=== PATIENT | female | born 1965 | race American Indian/Alaskan Native ===

== ENCOUNTER 2016-06-15 05:26 | Emergency (ER) | payer SELFPAY ==
[2016-06-15] MEDS ORDERED: MAGNESIUM SULFATE 2GM/50ML 50 ML IV ONE (06:45)
[2016-06-15] MEDS ORDERED: PROVENTIL IH ONE ×2 (06:45→08:59)
[2016-06-15] MEDS ORDERED: ATROVENT IH ONE (06:45)
--- NOTE | 2016-06-15 06:47 | Emergency Department Report ---
HPI - General Chief Complaint: Dyspnea/Respdistress Time Seen by Provider: 06/15/16 06:04 - HPI HPI: This is a 51-year-old Afro-[place] female presents to the emergency department from home with complaint of a three-day history of shortness of breath. This associated with a mild dry cough and significant wheezing. Patient has a history of asthma and says that this feels like an asthma exacerbation. She has tried her albuterol inhaler and her nebulized treatments at home without any relief. She does not have a primary care doctor. She is not a tobacco user. She denies any recent travel or sick contacts at home. She says she has had to be admitted to a hospital in the past for asthma but has never required intubation. ED Past Medical Hx - Past Medical History Previous Medical History?: Yes Hx Congestive Heart Failure: No Hx Diabetes: No Hx Pulmonary Embolism: No Hx Asthma: Yes (has been intubated) Hx COPD: No Hx Tuberculosis: No Hx HIV: No - Surgical History Past Surgical History?: Yes Additional Surgical History: tubal ligation - Social History Smoking Status: Never Smoker Substance Use Type: None - Medications Home Medications: Home Medications Medication Instructions Recorded Confirmed Last Taken Type ALBUTEROL Inhaler [ProAir HFA 2 puff IH QID PRN #1 inhalation 05/21/16 06/15/16 1 Day Ago Rx Inhaler] 8.5 Albuterol Sulfate [Albuterol 0.63% 0.63 mg IH TID PRN #1 box 06/15/16 Unknown Rx NEBS] Fluticasone [Flonase] 2 dispenser BID 06/15/16 06/15/16 1 Day Ago History Fluticasone/Salmeterol [Advair 2 device PO DAILY 06/15/16 06/15/16 1 Day Ago History Diskus 250-50 mcg] Montelukast [Singulair] 10 mg PO QPM 06/15/16 06/15/16 1 Day Ago History 10 predniSONE [Deltasone] 20 mg PO BID #10 tab 06/15/16 Unknown Rx ED Review of Systems ROS: Stated complaint: SOPHY Other details as noted in HPI Comment: All other systems reviewed and negative Constitutional: denies: chills, fever Eyes: denies: eye pain, eye discharge, vision change ENT: denies: ear pain, throat pain Respiratory: cough, shortness of breath, wheezing Cardiovascular: denies: chest pain, palpitations Gastrointestinal: denies: abdominal pain, nausea, diarrhea Genitourinary: denies: urgency, dysuria, discharge Musculoskeletal: denies: back pain, joint swelling, arthralgia Skin: denies: rash, lesions Neurological: denies: headache, weakness, paresthesias Physical Exam - Physical Exam Vital Signs: Vital Signs 06/15/16 06/15/16 06/15/16 05:31 05:45 06:12 Temperature 98 F 98 F Pulse Rate 119 H 119 H 107 H Respiratory 24 21 Rate Blood Pressure 144/93 Blood Pressure 144/93 102/76 [Right] O2 Sat by Pulse 99 99 96 Oximetry 06/15/16 06:14 Temperature Pulse Rate Respiratory 21 Rate Blood Pressure Blood Pressure [Right] O2 Sat by Pulse 96 Oximetry Physical Exam: GENERAL: The patient is well-developed well-nourished. HEENT: Normocephalic. Atraumatic. Extraocular motions are intact. Patient has moist mucous membranes. Pupils equal reactive to light bilaterally. NECK: Supple. Trachea is midline. CHEST/LUNGS: Moderate wheezing throughout the chest. Patient has tachypnea and some supraclavicular accessory muscle use. Patient has conversational dyspnea. There is mild to moderate respiratory distress noted. HEART/CARDIOVASCULAR: Regular. There is mild tachycardia. There is no gallop rub or murmur. ABDOMEN: Abdomen is soft, nontender. Patient has normal bowel sounds. There is no abdominal distention. SKIN: There is no rash. There is no edema. There is no diaphoresis. NEURO: The patient is awake, alert, and oriented. The patient is cooperative. The patient has no focal neurologic deficits. The patient has normal speech. MUSCULOSKELETAL: There is no tenderness or deformity. There is no limitation range of motion. There is no evidence of acute injury. ED Course Vital Signs 06/15/16 06/15/16 06/15/16 05:31 05:45 06:12 Temperature 98 F 98 F Pulse Rate 119 H 119 H 107 H Respiratory 24 21 Rate Blood Pressure 144/93 Blood Pressure 144/93 102/76 [Right] O2 Sat by Pulse 99 99 96 Oximetry 06/15/16 06:14 Temperature Pulse Rate Respiratory 21 Rate Blood Pressure Blood Pressure [Right] O2 Sat by Pulse 96 Oximetry ED Medical Decision Making - Lab Data Result diagrams: 06/15/16 07:53 06/15/16 07:53 - EKG Data -: EKG Interpreted by Me EKG shows normal: sinus rhythm, axis (LAD), intervals, QRS complexes, ST-T waves Rate: tachycardia (106 bpm) - EKG Data When compared to previous EKG there are: previous EKG unavailable Interpretation: other (sinus tach, left axis deviation) - Radiology Data Radiology results: image reviewed interpreted by me: Chest x-ray did not show any acute process. Heart is normal shape and size. No effusions. No pneumothorax. No signs of pneumonia seen. - Medical Decision Making 51-year-old female presents with what appears to be a asthma exacerbation. She has shortness of breath, wheezing and says she has a cough. She appears to be in mild to moderate distress at first with some conversational dyspnea, tachypnea and accessory muscle use. However the patient was given a long breathing treatment with albuterol and Atrovent, IV Solu-Medrol and magnesium, and upon reevaluation she is feeling much better and no longer in any respiratory distress. Patient's heart rate is coming down to a normal level. Vital signs are stable including being afebrile and there has been no hypoxia. Patient's labs are unremarkable. Chest x-ray does not show any signs of heart failure or pneumonia. Patient's that she is feeling much better and asking for discharge home. She will get a 5 day course of steroids and a refill of her nebulized treatments. She already is attempting to establish care with outside [facility]. She will return to the ER with any worsening of her symptoms or any acute distress. - Differential Diagnosis asthma, bronchitis, pneumonia, OR, COPD Critical Care Time: No Critical care attestation.: If time is entered above; I have spent that time in minutes in the direct care of this critically ill patient, excluding procedure time. ED Disposition Clinical Impression: Asthma exacerbation Disposition: DISCHARGED TO HOME OR SELFCARE Is pt being admited?: No Does the pt Need Aspirin: No Condition: Stable Instructions: Asthma (ED) Additional Instructions: Please follow-up with a primary care doctor in the next few days. It is recommended that he use the nebulized breathing treatments a bout every 4-5 hours for the next day. Take the steroids as prescribed. Return to the emergency department with any worsening of your symptoms or any acute distress. Prescriptions: Albuterol Sulfate [Albuterol 0.63% NEBS] 0.63 mg IH TID PRN #1 box PRN Reason: Wheezing predniSONE [Deltasone] 20 mg PO BID #10 tab Referrals: [facility] [Outside] - 3-5 Days Time of Disposition: 09:52
[2016-06-15 08:35] LABS: Hematocrit 39.5 % (30.3-42.9); Hemoglobin 12.3 gm/dl (10.1-14.3); Mean Corpuscular HGB Conc 31 % (30-34); Mean Corpuscular Hemoglobin 27 pg (28-32); Mean Corpuscular Volume 88 fl (79-97); Platelet Count 256 K/mm3 (140-440); Red Blood Count 4.49 M/mm3 (3.65-5.03); White Blood Count 6.8 K/mm3 (4.5-11.0)
[2016-06-15 08:56] LABS: Anion Gap 17 mmol/L; Blood Urea Nitrogen 12 mg/dL (7-17); Calcium 8.6 mg/dL (8.4-10.2); Carbon Dioxide 27 mmol/L (22-30); Chloride 99.7 mmol/L (98-107); Glucose 113 mg/dL (65-100); Potassium 3.7 mmol/L (3.6-5.0); Sodium 140 mmol/L (137-145)
[2016-06-15 09:30] LABS: Anisocytosis 1+; Basophils % (Manual) 0 % (0.0-1.8); Blastocytes % (Manual) 0 %; Diff Status Complete; Hypochromasia 1+
[2016-06-15 10:26] VITALS: BP 115/75
--- NOTE | 2016-06-16 11:16 | XRay Report ---
AP CHEST: HISTORY: Shortness of breath AP view of the chest demonstrates a normal mediastinal and cardiac contour with clear lungs and normal bony and soft tissue structures. IMPRESSION: Unremarkable AP chest. No significant change since 05/19/16.
== END 2016-06-15 10:25 | disposition home or self-care (01) ==
LOC: ED 05:26
DX: J45.901 Unspecified asthma with (acute) exacerbation (principal)
CPT/HCPCS: 36415; 71010; 80048; 84484; 85007; 85025; 93005; 93010; 94640; 96365; 96375; 99284; J2930; J3475

== ENCOUNTER 2016-07-15 01:15 | Emergency (ER) | payer OTHER ==
[2016-07-15] MEDS ORDERED: DUONEB 0.5 MG-3 MG/3 ML SOLN IH ONE ×3 (01:55→03:58)
[2016-07-15] MEDS ORDERED: PROVENTIL IH ONE ×2 (03:58→06:09)
[2016-07-15] MEDS ORDERED: DELTASONE PO ONE (03:58)
[2016-07-15] MEDS ORDERED: TYLENOL ONE (05:12)
[2016-07-15] MEDS ORDERED: TYLENOL PO ONE (05:19)
[2016-07-15 05:21] VITALS: BP 122/65
--- NOTE | 2016-07-15 06:16 | Emergency Department Report ---
ED Asthma HPI - General Chief Complaint: Adult Asthma Stated Complaint: ASTHMA Time Seen by Provider: 07/15/16 03:53 Source: patient Mode of arrival: Ambulatory Limitations: No Limitations - History of Present Illness Initial Comments: This is a pleasant 51-year-old female who indicates that she is required increased albuterol usage today. She does endorse using Advair as maintenance medicatio she states that she has numerous triggers including the weather and upper respiratory infections as a chief triggers for her asthma exacerbation. She has never required intubation for asthma. She does report being on steroids approximately 6 weeks ago for asthma exacerbation. MD Complaint: "asthma attack" Onset/Timin -: Gradual, hour(s) Asthma History: adult onset Context: recent URI, other (cold) Associated Symptoms: dry cough. denies: fever, chest pain Treatments Prior to Arrival: inhaled bronchodilator - Related Data Home Medications Medication Instructions Recorded Confirmed Last Taken Fluticasone [Flonase] 2 dispenser BID 06/15/16 06/15/16 1 Day Ago Fluticasone/Salmeterol [Advair 2 device PO DAILY 06/15/16 06/15/16 1 Day Ago Diskus 250-50 mcg] Montelukast [Singulair] 10 mg PO QPM 06/15/16 06/15/16 1 Day Ago 10 Previous Rx's Medication Instructions Recorded Last Taken Type ALBUTEROL Inhaler [ProAir HFA 2 puff IH QID PRN #1 inhalation 05/21/16 1 Day Ago Rx Inhaler] 8.5 Albuterol Sulfate [Albuterol 0.63% 0.63 mg IH TID PRN #1 box 06/15/16 Unknown Rx NEBS] predniSONE [Deltasone] 20 mg PO BID #10 tab 06/15/16 Unknown Rx ALBUTEROL Inhaler [ProAir HFA 2 puff IH QID PRN #1 inhalation 07/15/16 Unknown Rx Inhaler] ALBUTEROL NEB's [Proventil 0.083% 2.5 mg IH QID PRN #90 dose 07/15/16 Unknown Rx NEBS] predniSONE [Deltasone] 60 mg PO DAILY #4 tablet 07/15/16 Unknown Rx Allergies Allergy/AdvReac Type Severity Reaction Status Date / Time erythromycin base Allergy Vomiting Verified 04/28/16 13:37 Penicillins Allergy Vomiting Verified 04/28/16 13:37 ED Review of Systems ROS: Stated complaint: ASTHMA Other details as noted in HPI Constitutional: denies: chills, fever Eyes: denies: eye pain, eye discharge, vision change ENT: denies: ear pain, throat pain Respiratory: shortness of breath, SOB with exertion, wheezing. denies: cough Cardiovascular: denies: chest pain, palpitations Endocrine: no symptoms reported Gastrointestinal: denies: abdominal pain, nausea, diarrhea Genitourinary: denies: urgency, dysuria, discharge Musculoskeletal: denies: back pain, joint swelling, arthralgia Skin: denies: rash, lesions Neurological: headache. denies: weakness, paresthesias Psychiatric: denies: anxiety, depression Hematological/Lymphatic: denies: easy bleeding, easy bruising ED Past Medical Hx - Past Medical History Previous Medical History?: Yes Hx Congestive Heart Failure: No Hx Diabetes: No Hx Pulmonary Embolism: No Hx Asthma: Yes (has been intubated) Hx COPD: No Hx Tuberculosis: No Hx HIV: No - Surgical History Past Surgical History?: Yes Additional Surgical History: tubal ligation - Social History Smoking Status: Never Smoker Substance Use Type: None - Medications Home Medications: Home Medications Medication Instructions Recorded Confirmed Last Taken Type ALBUTEROL Inhaler [ProAir HFA 2 puff IH QID PRN #1 inhalation 05/21/16 06/15/16 1 Day Ago Rx Inhaler] 8.5 Albuterol Sulfate [Albuterol 0.63% 0.63 mg IH TID PRN #1 box 06/15/16 Unknown Rx NEBS] Fluticasone [Flonase] 2 dispenser BID 06/15/16 06/15/16 1 Day Ago History Fluticasone/Salmeterol [Advair 2 device PO DAILY 06/15/16 06/15/16 1 Day Ago History Diskus 250-50 mcg] Montelukast [Singulair] 10 mg PO QPM 06/15/16 06/15/16 1 Day Ago History 10 predniSONE [Deltasone] 20 mg PO BID #10 tab 06/15/16 Unknown Rx ALBUTEROL Inhaler [ProAir HFA 2 puff IH QID PRN #1 inhalation 07/15/16 Unknown Rx Inhaler] ALBUTEROL NEB's [Proventil 0.083% 2.5 mg IH QID PRN #90 dose 07/15/16 Unknown Rx NEBS] predniSONE [Deltasone] 60 mg PO DAILY #4 tablet 07/15/16 Unknown Rx ED Physical Exam - General Limitations: No Limitations General appearance: alert, in distress (mild distress due to dyspnea) - Head Head exam: Present: atraumatic, normocephalic - Eye Eye exam: Present: normal appearance - ENT ENT exam: Present: normal orophraynx, mucous membranes moist - Neck Neck exam: Present: normal inspection - Respiratory Respiratory exam: Present: respiratory distress (mild), wheezes (diffusely), decreased breath sounds - Cardiovascular Cardiovascular Exam: Present: regular rate, normal rhythm. Absent: systolic murmur, diastolic murmur, rubs, gallop - GI/Abdominal GI/Abdominal exam: Present: soft, normal bowel sounds - Extremities Exam Extremities exam: Present: normal inspection - Back Exam Back exam: Present: normal inspection - Neurological Exam Neurological exam: Present: alert, oriented X3 - Psychiatric Psychiatric exam: Present: normal affect, normal mood - Skin Skin exam: Present: warm, dry, intact, normal color. Absent: rash ED Course Vital Signs 07/15/16 07/15/16 07/15/16 01:20 02:31 02:44 Temperature 97.9 F Pulse Rate 100 H 88 Pulse Rate [ Anterior Bilateral Throughout] Respiratory 22 22 12 Rate Respiratory Rate [Anterior Bilateral Throughout] Blood Pressure 128/97 Blood Pressure [Left] O2 Sat by Pulse 97 99 Oximetry 07/15/16 07/15/16 07/15/16 04:33 05:02 05:20 Temperature Pulse Rate 100 H Pulse Rate [ 88 89 Anterior Bilateral Throughout] Respiratory 16 Rate Respiratory 18 18 Rate [Anterior Bilateral Throughout] Blood Pressure Blood Pressure 122/65 [Left] O2 Sat by Pulse 99 Oximetry - Reevaluation(s) Reevaluation #1: 07/15/16 06:17 Patient was given several rounds of albuterol here as well as an oral dose of prednisone. I will send home with a 5 day burst total of prednisone as well. She still sounds fairly tight on the evaluation. Her oxygen saturation is appropriate. She is able to speak in full sentences at this time as well. She subjectively reports feeling much improved. She does have a nebulizer at home as well as medications at home. I feel she will be safe for home. She seems to understand her disease very well. Critical care attestation.: If time is entered above; I have spent that time in minutes in the direct care of this critically ill patient, excluding procedure time. ED Disposition Clinical Impression: Asthma exacerbation Disposition: DISCHARGED TO HOME OR SELFCARE Is pt being admited?: No Does the pt Need Aspirin: No Condition: Stable Prescriptions: ALBUTEROL Inhaler [ProAir HFA Inhaler] 2 puff IH QID PRN #1 inhalation PRN Reason: Shortness Of Breath ALBUTEROL NEB's [Proventil 0.083% NEBS] 2.5 mg IH QID PRN #90 dose PRN Reason: Wheezing predniSONE [Deltasone] 60 mg PO DAILY #4 tablet Referrals: PRIMARY CARE, [Primary Care Provider] - 3-5 Days Time of Disposition: 06:19
== END 2016-07-15 07:07 | disposition home or self-care (01) ==
LOC: ED 01:15
DX: J45.901 Unspecified asthma with (acute) exacerbation (principal); Z88.0 Allergy status to penicillin; Z88.1 Allergy status to other antibiotic agents; Z79.899 Other long term (current) drug therapy
CPT/HCPCS: 94640; 99283; J7512

== ENCOUNTER 2016-08-18 10:28 | Emergency (ER) | payer SELFPAY ==
[2016-08-18 10:45] VITALS: BP 126/77
[2016-08-18] MEDS ORDERED: DUONEB 0.5 MG-3 MG/3 ML SOLN IH ONE (10:58)
--- NOTE | 2016-08-18 11:10 | Emergency Department Report ---
ED Asthma HPI - General Chief Complaint: Adult Asthma Stated Complaint: SOPHY Time Seen by Provider: 08/18/16 10:57 Source: patient, old records reviewed Mode of arrival: Ambulatory Limitations: No Limitations - History of Present Illness Initial Comments: PT coughing and wheezing. PT nods when asked if symptoms started this am and if she usually feels this way when she has an asthma attack MD Complaint: "asthma attack" Asthma History: history of prior ED visit Associated Symptoms: dry cough - Related Data Current Asthma Therapy: recent oral steroid (last month ) Home Medications Medication Instructions Recorded Confirmed Last Taken Fluticasone [Flonase] 2 dispenser BID 06/15/16 06/15/16 1 Day Ago Fluticasone/Salmeterol [Advair 2 device PO DAILY 06/15/16 06/15/16 1 Day Ago Diskus 250-50 mcg] Montelukast [Singulair] 10 mg PO QPM 06/15/16 06/15/16 1 Day Ago 10 Previous Rx's Medication Instructions Recorded Last Taken Type ALBUTEROL NEB's [Proventil 0.083% 2.5 mg IH QID PRN #90 dose 07/15/16 Unknown Rx NEBS] Albuterol Sulfate [Ventolin HFA] 2 puff IH Q4H PRN #1 hfa.aer.ad 08/18/16 Unknown Rx Benzonatate [Tessalon Perles] 100 mg PO Q8HR PRN #12 capsule 08/18/16 Unknown Rx predniSONE [Deltasone] 20 mg PO QDAY 6 Days 08/18/16 Unknown Rx Allergies Allergy/AdvReac Type Severity Reaction Status Date / Time erythromycin base Allergy Vomiting Verified 04/28/16 13:37 Penicillins Allergy Vomiting Verified 04/28/16 13:37 ED Review of Systems ROS: Stated complaint: SOPHY Other details as noted in HPI Comment: Unobtainable due to pts medical conditions (pt unable to speak in full sentences at this time.) ED Past Medical Hx - Past Medical History Hx Congestive Heart Failure: No Hx Diabetes: No Hx Pulmonary Embolism: No Hx Asthma: Yes (has been intubated) Hx COPD: No Hx Tuberculosis: No Hx HIV: No - Surgical History Additional Surgical History: tubal ligation - Social History Smoking Status: Never Smoker Substance Use Type: None - Medications Home Medications: Home Medications Medication Instructions Recorded Confirmed Last Taken Type Fluticasone [Flonase] 2 dispenser BID 06/15/16 06/15/16 1 Day Ago History Fluticasone/Salmeterol [Advair 2 device PO DAILY 06/15/16 06/15/16 1 Day Ago History Diskus 250-50 mcg] Montelukast [Singulair] 10 mg PO QPM 06/15/16 06/15/16 1 Day Ago History 10 ALBUTEROL NEB's [Proventil 0.083% 2.5 mg IH QID PRN #90 dose 07/15/16 Unknown Rx NEBS] Albuterol Sulfate [Ventolin HFA] 2 puff IH Q4H PRN #1 hfa.aer.ad 08/18/16 Unknown Rx Benzonatate [Tessalon Perles] 100 mg PO Q8HR PRN #12 capsule 08/18/16 Unknown Rx predniSONE [Deltasone] 20 mg PO QDAY 6 Days 08/18/16 Unknown Rx ED Physical Exam - General Limitations: No Limitations General appearance: alert, other (resp distress noted ) - Head Head exam: Present: atraumatic, normocephalic - Eye Eye exam: Present: normal appearance - ENT ENT exam: Present: normal exam - Neck Neck exam: Present: normal inspection, full ROM - Respiratory Respiratory exam: Present: respiratory distress, wheezes (keven, ins and exp ), accessory muscle use - Cardiovascular Cardiovascular Exam: Present: normal rhythm, tachycardia - GI/Abdominal GI/Abdominal exam: Present: soft. Absent: tenderness - Extremities Exam Extremities exam: Present: normal inspection, full ROM - Back Exam Back exam: Present: normal inspection, full ROM. Absent: tenderness, CVA tenderness (R), CVA tenderness (L) - Neurological Exam Neurological exam: Present: alert, oriented X3, CN II-XII intact, normal gait - Psychiatric Psychiatric exam: Present: normal affect, normal mood - Skin Skin exam: Present: warm, dry ED Course Vital Signs 08/18/16 08/18/16 08/18/16 10:39 11:18 12:20 Temperature 98.7 F Pulse Rate 117 H Pulse Rate [ 107 H 91 H Anterior Bilateral Throughout] Respiratory 26 H 20 Rate [Anterior Bilateral Throughout] Blood Pressure 126/77 O2 Sat by Pulse 96 Oximetry 08/18/16 08/18/16 08/18/16 13:26 15:38 16:05 Temperature Pulse Rate Pulse Rate [ 92 H 96 H 105 H Anterior Bilateral Throughout] Respiratory 20 20 20 Rate [Anterior Bilateral Throughout] Blood Pressure O2 Sat by Pulse Oximetry - Reevaluation(s) Reevaluation #1: 08/18/16 12:02 Continuous neb in progress. PT states she is feeling better. PT still wheezing Reevaluation #2: 08/18/16 14:14 PT completed second neb. PT states she is feeling better but she is still wheezing. PT with keven wheezing on exam. PT able to speak in complete sentences. PT states she has had a cold for 1 week and she noticed an increase in coughing on Friday. PT states she has been using her home breathing treatments but this am around 0600, they stopped helping Reevaluation #3: 08/18/16 16:31 PT states she is feeling better. PT stats she has appointment with [facility] in a month. PT given strict return precautions. PT with slight wheeze keven. - Pulse Oximetry Interpretation Digit-Finger Initial Pulse Oximetry Readin Actions Taken: none ED Medical Decision Making - Radiology Data Radiology results: image reviewed interpreted by me: CXR - nap - Differential Diagnosis asthma, bronchitis, uri, pna Critical care attestation.: If time is entered above; I have spent that time in minutes in the direct care of this critically ill patient, excluding procedure time. ED Disposition Clinical Impression: Asthmatic bronchitis with exacerbation Qualifiers: Asthma severity: unspecified severity Qualified Code(s): J45.901 - Unspecified asthma with (acute) exacerbation Disposition: DISCHARGED TO HOME OR SELFCARE Is pt being admited?: No Does the pt Need Aspirin: No Condition: Stable Instructions: Chronic Bronchitis (ED) Prescriptions: Albuterol Sulfate [Ventolin HFA] 2 puff IH Q4H PRN #1 hfa.aer.ad PRN Reason: Shortness Of Breath Benzonatate [Tessalon Perles] 100 mg PO Q8HR PRN #12 capsule PRN Reason: Cough predniSONE [Deltasone] 20 mg PO QDAY 6 Days Referrals: PRIMARY CARE, [Primary Care Provider] - 3-5 Days Time of Disposition: 16:33
[2016-08-18] MEDS ORDERED: PROVENTIL IH ONE ×3 (11:20→14:15)
[2016-08-18] MEDS ORDERED: ATROVENT IH ONE ×3 (11:22→14:15)
[2016-08-18] MEDS ORDERED: TYLENOL PO ONE (14:46)
[2016-08-18] MEDS ORDERED: TESSALON PERLES PO ONE (14:52)
--- NOTE | 2016-08-19 07:49 | XRay Report ---
ROUTINE CHEST, TWO VIEWS: HISTORY: Cough. The trachea, heart, mediastinal contour, lung mendoza and bony thorax are unremarkable. IMPRESSION: No acute cardiopulmonary process.
== END 2016-08-18 16:38 | disposition home or self-care (01) ==
LOC: ED 10:28
DX: J45.901 Unspecified asthma with (acute) exacerbation (principal); Z88.0 Allergy status to penicillin; Z88.1 Allergy status to other antibiotic agents; Z79.899 Other long term (current) drug therapy; Z98.51 Tubal ligation status
CPT/HCPCS: 71020; 94644; 96372; 99284; J2930

== ENCOUNTER 2016-09-12 19:03 | Emergency (ER) | payer SELFPAY ==
[2016-09-12] MEDS ORDERED: DUONEB 0.5 MG-3 MG/3 ML SOLN IH ONE ×2 (19:08→19:17)
[2016-09-12] MEDS ORDERED: TYLENOL/CODEINE PO ONE (20:36)
[2016-09-12 20:39] LABS: Hemoglobin 13.4 gm/dl (10.1-14.3); Mean Corpuscular HGB Conc 33 % (30-34); Mean Corpuscular Hemoglobin 29 pg (28-32); Mean Corpuscular Volume 88 fl (79-97); Platelet Count 287 K/mm3 (140-440); Red Blood Count 4.64 M/mm3 (3.65-5.03); Red Cell Distribution Width 18.2 % (13.2-15.2); White Blood Count 6.6 K/mm3 (4.5-11.0)
[2016-09-12 20:46] LABS: Anion Gap 17 mmol/L; BUN/Creatinine Ratio 18.33; Blood Urea Nitrogen 11 mg/dL (7-17); Calcium 9.2 mg/dL (8.4-10.2); Carbon Dioxide 26 mmol/L (22-30); Chloride 101.1 mmol/L (98-107); Glucose 90 mg/dL (65-100); Potassium 3.9 mmol/L (3.6-5.0); Sodium 140 mmol/L (137-145)
--- NOTE | 2016-09-12 20:46 | Emergency Department Report ---
HPI - General Chief Complaint: Adult Asthma Time Seen by Provider: 09/12/16 20:22 - HPI HPI: This is a 51-year-old female with a history of asthma on Advair discus who presents to ED complaining of hoarseness and difficulty breathing and cough 2 days. Patient states she is a cough for the past 3-4 days. And today she started having wheezing with difficulty breathing. Patient states her home medication was not working and she is out of her albuterol.. Patient denies fever/chills/nausea/vomiting/abdominal pain/chest pain/dizziness/ headache ED Past Medical Hx - Past Medical History Previous Medical History?: Yes Hx Congestive Heart Failure: No Hx Diabetes: No Hx Pulmonary Embolism: No Hx Asthma: Yes (has been intubated) Hx COPD: No Hx Tuberculosis: No Hx HIV: No - Surgical History Past Surgical History?: Yes Additional Surgical History: tubal ligation - Social History Smoking Status: Never Smoker Substance Use Type: None - Medications Home Medications: Home Medications Medication Instructions Recorded Confirmed Last Taken Type Fluticasone [Flonase] 2 dispenser BID 06/15/16 09/12/16 09/12/16 History Fluticasone/Salmeterol [Advair 2 device PO DAILY 06/15/16 09/12/16 09/12/16 History Diskus 250-50 mcg] Montelukast [Singulair] 10 mg PO QPM 06/15/16 09/12/16 09/12/16 History ALBUTEROL NEB's [Proventil 0.083% 2.5 mg IH QID PRN #90 dose 07/15/16 09/12/16 09/12/16 Rx NEBS] Albuterol Sulfate [Ventolin HFA] 2 puff IH Q4H PRN #1 hfa.aer.ad 09/12/16 Unknown Rx Azithromycin [Zithromax] 250 mg PO DAILY #6 tablet 09/12/16 Unknown Rx Benzonatate [Tessalon Perles] 100 mg PO Q8HR PRN #12 capsule 09/12/16 Unknown Rx predniSONE [Deltasone] 20 mg PO QDAY 6 Days 09/12/16 Unknown Rx ED Review of Systems ROS: Stated complaint: ASTHMA Other details as noted in HPI Constitutional: denies: chills, fever Eyes: denies: eye pain, eye discharge, vision change ENT: denies: ear pain, throat pain, dental pain, hearing loss, congestion Respiratory: cough, wheezing. denies: shortness of breath Cardiovascular: denies: chest pain, palpitations Endocrine: no symptoms reported Gastrointestinal: denies: abdominal pain, nausea, vomiting, diarrhea Genitourinary: denies: urgency, dysuria, frequency, hematuria, discharge, abnormal menses, dyspareunia Musculoskeletal: denies: back pain, joint swelling, arthralgia, myalgia Skin: denies: rash, lesions Neurological: denies: headache, weakness, paresthesias Psychiatric: denies: anxiety, depression Hematological/Lymphatic: denies: easy bleeding, easy bruising Physical Exam - Physical Exam Vital Signs: Vital Signs 09/12/16 09/12/16 19:05 19:40 Temperature 98.1 F Pulse Rate 110 H Pulse Rate [ 74 Bilateral Throughout] Respiratory 22 Rate Respiratory 18 Rate [Bilateral Throughout] Blood Pressure 132/91 [Right] O2 Sat by Pulse 96 Oximetry Physical Exam: GENERAL: Alert and oriented x3, no apparent distress, Normal Gait, atraumatic. HEAD: Head is normocephalic and a-traumatic. EYES: Extra ocular muscles are intact. Pupils are equal, round, and reactive to light and accommodation. MOUTH:Mouth is well hydrated and without lesions. Tonsils nonerythematous or swollen, Uvula midline, Tongue not elevated. Mucous membranes are moist. Posterior pharynx clear, no exudate or lesions. Patent airways. NECK: Supple. Non edematous, No carotid bruits. No lymphadenopathy or thyromegaly. LUNGS: Symetrical with respiration, no use of accessory muscles, bilateral expiratory wheezing heard, no rales or crackles, CTAB. HEART: S1, S2 present, regular rate and rhythm without murmur, no rubs, no gallops. ABDOMEN: No organomegaly was noted,Positive bowel sounds, soft, and non- distended. . Nontender to palpation on all Quadrants, NO CVA tndness PSYCHIATRIC: Mood is congruent with affect, denies suicidal or homicidal ideations. SKIN: Warm and dry, No lesions, No ulceration or induration present. ED Course Vital Signs 09/12/16 09/12/16 19:05 19:40 Temperature 98.1 F Pulse Rate 110 H Pulse Rate [ 74 Bilateral Throughout] Respiratory 22 Rate Respiratory 18 Rate [Bilateral Throughout] Blood Pressure 132/91 [Right] O2 Sat by Pulse 96 Oximetry ED Medical Decision Making - Lab Data Result diagrams: 09/12/16 20:08 09/12/16 20:08 - Radiology Data Radiology results: report reviewed, image reviewed FINAL REPORT PROCEDURE: XR CHEST ROUTINE 2V TECHNIQUE: PA and lateral chest radiographs were obtained. CPT 03096 HISTORY: Shortness of breath COMPARISON: No prior studies are available for comparison. FINDINGS: Heart: Normal. Mediastinum/Vessels: Normal. Lungs/Pleural space: Normal. Bony thorax: No acute osseous abnormality. Other: IMPRESSION: Negative examination. Transcribed By: DFAlex Dictated By: RACHEL MONTANO MD Electronically Authenticated By: RCAHEL MONTANO MD Signed Date/Time: 09/12/162158 - Medical Decision Making 51-year-old female presents with asthma exacerbation. ED course. Patient received respiratory treatment of DuoNeb in triage. Patient received Solu-Medrol IM and Tylenol with codeine ED. Patient was recently evaluated. Mild bilateral expiratory wheezing. O2 saturation increased Patient received another breathing treatment of albuterol ED. History of breath 30 minutes patient states she feels much better. Patient states she needs referral for primary care follow-up. Discussed referrals will be given. To follow-up in 3-5 days. Discussed home antibiotic, prednisone, and refill of her albuterol. She verbally states she understands and will follow-up. Patient is in no acute respiratory distress no use process or muscle patient is breathing properly and ready to go home Critical care attestation.: If time is entered above; I have spent that time in minutes in the direct care of this critically ill patient, excluding procedure time. ED Disposition Clinical Impression: Asthma exacerbation Disposition: DISCHARGED TO HOME OR SELFCARE Is pt being admited?: No Does the pt Need Aspirin: No Condition: Stable Instructions: Asthma (ED) Prescriptions: Albuterol Sulfate [Ventolin HFA] 2 puff IH Q4H PRN #1 hfa.aer.ad PRN Reason: Shortness Of Breath Azithromycin [Zithromax] 250 mg PO DAILY #6 tablet Benzonatate [Tessalon Perles] 100 mg PO Q8HR PRN #12 capsule PRN Reason: Cough predniSONE [Deltasone] 20 mg PO QDAY 6 Days Referrals: PRIMARY CARE,MD [Primary Care Provider] - 3-5 Days KERRI CHRISTENSEN MD [Referring] - 3-5 Days BRADLY BELL MD [Referring] - 3-5 Days [facility] [Outside] - 3-[address] [facility] [Outside] - 3-5 Days [facility] [Outside] - 3-5 Days Forms: Work/School Release Form(ED) Time of Disposition: 22:20
[2016-09-12] MEDS ORDERED: PROVENTIL IH ONE (21:03)
--- NOTE | 2016-09-12 22:02 | XRay Report ---
FINAL REPORT PROCEDURE: XR CHEST ROUTINE 2V TECHNIQUE: PA and lateral chest radiographs were obtained. CPT 73288 HISTORY: Shortness of breath COMPARISON: No prior studies are available for comparison. FINDINGS: Heart: Normal. Mediastinum/Vessels: Normal. Lungs/Pleural space: Normal. Bony thorax: No acute osseous abnormality. Other: IMPRESSION: Negative examination.
[2016-09-12 22:07] LABS: Basophils % (Manual) 0 % (0.0-1.8); Blastocytes % (Manual) 0 %
[2016-09-12 22:08] LABS: Anisocytosis 1+; Diff Status Complete; Elliptocytes Few; Platelet Estimate Consistent w Auto
[2016-09-12 23:07] VITALS: BP 133/89
== END 2016-09-12 23:07 | disposition home or self-care (01) ==
LOC: ED 19:03
DX: J45.901 Unspecified asthma with (acute) exacerbation (principal); Z98.51 Tubal ligation status
CPT/HCPCS: 36415; 71020; 80048; 84484; 84703; 85007; 85025; 94640; 96372; 99284; J2930

== ENCOUNTER 2016-10-06 03:31 | Emergency (ER) | payer OTHER ==
[2016-10-06] MEDS ORDERED: XOPENEX IH ONE ×3 (03:39→05:40)
[2016-10-06 03:44] VITALS: BP 131/96
[2016-10-06] MEDS ORDERED: ATROVENT IH ONE (04:33)
[2016-10-06] MEDS ORDERED: NORCO 5/325 PO ONE (04:38)
--- NOTE | 2016-10-06 05:29 | XRay Report ---
FINAL REPORT EXAM: XR CHEST ROUTINE 2V HISTORY: asthma exacerbation TECHNIQUE: Chest, PA and lateral PRIORS: 09/12/2016 FINDINGS: The heart size is normal. Mediastinal contours are normal. Pulmonary vasculature is not congested. The lungs are clear. There are no pleural effusion seen. There is no evidence of pneumothorax. IMPRESSION: There is no acute abnormality identified.
--- NOTE | 2016-10-06 06:22 | Emergency Department Report ---
HPI - General Chief Complaint: Adult Asthma Time Seen by Provider: 10/06/16 04:23 - HPI HPI: 51-year-old female presents today complaining of wheezing since 1430 hrs. yesterday. Positive for history of asthma and states that it usually takes her 3 breathing treatments at the ER to get better. He tried home neb treatment with temporary relief. Denies fever, chills, nausea, vomiting, chest pain, abdominal pain. Patient also complaining of a moderate headache. Positive for history of headaches and states that this feels similar. Rates her headache as 8 out of 10 aching pain. Denies head injury or trauma. Denies trying any medication for pain relief. ED Past Medical Hx - Past Medical History Previous Medical History?: Yes Hx Congestive Heart Failure: No Hx Diabetes: No Hx Pulmonary Embolism: No Hx Asthma: Yes (has been intubated) Hx COPD: No Hx Tuberculosis: No Hx HIV: No - Surgical History Past Surgical History?: Yes Additional Surgical History: tubal ligation - Social History Smoking Status: Never Smoker Substance Use Type: None - Medications Home Medications: Home Medications Medication Instructions Recorded Confirmed Last Taken Type Fluticasone [Flonase] 2 dispenser BID 06/15/16 09/12/16 09/12/16 History Fluticasone/Salmeterol [Advair 2 device PO DAILY 06/15/16 09/12/16 09/12/16 History Diskus 250-50 mcg] Montelukast [Singulair] 10 mg PO QPM 06/15/16 09/12/16 09/12/16 History Azithromycin [Zithromax] 250 mg PO DAILY #6 tablet 09/12/16 Unknown Rx Benzonatate [Tessalon Perles] 100 mg PO Q8HR PRN #12 capsule 09/12/16 Unknown Rx ALBUTEROL NEB's [Proventil 0.083% 2.5 mg IH QID PRN #90 dose 10/06/16 Unknown Rx NEBS] Albuterol Sulfate [Ventolin HFA] 2 puff IH Q4H PRN #1 hfa.aer.ad 10/06/16 Unknown Rx predniSONE [Deltasone] 20 mg PO QDAY 6 Days 10/06/16 Unknown Rx ED Review of Systems ROS: Stated complaint: ASTHMA Other details as noted in HPI Constitutional: denies: chills, fever, malaise Eyes: denies: eye pain ENT: denies: ear pain, throat pain, congestion Respiratory: shortness of breath, wheezing. denies: cough Cardiovascular: denies: chest pain, palpitations Endocrine: no symptoms reported Gastrointestinal: denies: abdominal pain, nausea, vomiting Neurological: headache. denies: weakness Physical Exam - Physical Exam Vital Signs: Vital Signs 10/06/16 10/06/16 10/06/16 03:40 03:50 04:06 Temperature 98.1 F Pulse Rate 114 H Pulse Rate [ 103 H 104 H Anterior Bilateral Throughout] Respiratory 20 Rate Respiratory 16 16 Rate [Anterior Bilateral Throughout] Blood Pressure 131/96 [Right] O2 Sat by Pulse 94 Oximetry 10/06/16 10/06/16 04:51 05:10 Temperature Pulse Rate Pulse Rate [ 97 H 98 H Anterior Bilateral Throughout] Respiratory Rate Respiratory 16 16 Rate [Anterior Bilateral Throughout] Blood Pressure [Right] O2 Sat by Pulse Oximetry Physical Exam: GENERAL: The patient is well-developed and well-nourished. Patient is in NAD. HEAD: Normocephalic. Atraumatic. EYES: Extraocular motions are intact, PERRL. EARS: External auditory canals and tympanic membranes clear; hearing grossly intact. NOSE: Normal nasal mucosa with no nasal discharge. THROAT: No erythema, swelling or exudates. NECK: Supple, nontender, without lymphadenopathy. No meningitic signs are noted. CHEST/LUNGS: Positive for bilateral expiratory wheezing. HEART/CARDIOVASCULAR: Tachycardic. Regular rhythm. No murmurs, rubs or gallops. ABDOMEN: Abdomen is soft, nontender. Bowel sounds normoactive. No guarding or rebound tenderness. EXTREMITIES: Peripheral pulses intact. Capillary refill less than 2 seconds. NEURO: Alert and oriented x 3. Normal gait. ED Course Vital Signs 10/06/16 10/06/16 10/06/16 03:40 03:50 04:06 Temperature 98.1 F Pulse Rate 114 H Pulse Rate [ 103 H 104 H Anterior Bilateral Throughout] Respiratory 20 Rate Respiratory 16 16 Rate [Anterior Bilateral Throughout] Blood Pressure 131/96 [Right] O2 Sat by Pulse 94 Oximetry 10/06/16 10/06/16 04:51 05:10 Temperature Pulse Rate Pulse Rate [ 97 H 98 H Anterior Bilateral Throughout] Respiratory Rate Respiratory 16 16 Rate [Anterior Bilateral Throughout] Blood Pressure [Right] O2 Sat by Pulse Oximetry - Reevaluation(s) Reevaluation #1: 10/06/16 06:20 Positive for mild wheezing bilaterally. Patient appears to be in no distress. She reports symptomatic relief post 3 breathing treatments and Solu-Medrol. ED Medical Decision Making - Lab Data Vital Signs 10/06/16 10/06/16 10/06/16 03:40 03:50 04:06 Temperature 98.1 F Pulse Rate 114 H Pulse Rate [ 103 H 104 H Anterior Bilateral Throughout] Respiratory 20 Rate Respiratory 16 16 Rate [Anterior Bilateral Throughout] Blood Pressure 131/96 [Right] O2 Sat by Pulse 94 Oximetry 10/06/16 10/06/16 04:51 05:10 Temperature Pulse Rate Pulse Rate [ 97 H 98 H Anterior Bilateral Throughout] Respiratory Rate Respiratory 16 16 Rate [Anterior Bilateral Throughout] Blood Pressure [Right] O2 Sat by Pulse Oximetry - Radiology Data Radiology results: report reviewed Chest x-ray: The heart size is normal. Mediastinal contours are normal. Pulmonary vasculature is not congested. The lungs are clear. There are no pleural effusions seen. There is no evidence of pneumothorax. - Medical Decision Making 51-year-old female presents today post asthma exacerbation. Her x-ray results reveal no acute findings. Patient reports symptomatic relief post 3 breathing treatments and Solu-Medrol. Patient is in no acute distress at this time. She will be discharged home and is encouraged to follow up with a primary care provider. She will be sent home on albuterol neb treatment, albuterol inhaler and prednisone and is encouraged to return to the emergency room for any worsening symptoms. Critical care attestation.: If time is entered above; I have spent that time in minutes in the direct care of this critically ill patient, excluding procedure time. ED Disposition Clinical Impression: Asthma exacerbation Disposition: DISCHARGED TO HOME OR SELFCARE Is pt being admited?: No Does the pt Need Aspirin: No Condition: Stable Instructions: Asthma (ED) Additional Instructions: Follow-up with primary care provider. Return to the emergency department if symptoms worsen. Prescriptions: ALBUTEROL NEB's [Proventil 0.083% NEBS] 2.5 mg IH QID PRN #90 dose PRN Reason: Wheezing Albuterol Sulfate [Ventolin HFA] 2 puff IH Q4H PRN #1 hfa.aer.ad PRN Reason: Shortness Of Breath predniSONE [Deltasone] 20 mg PO QDAY 6 Days Referrals: PRIMARY CARE,MD [Primary Care Provider] - 3-5 Days Forms: Work/School Release Form(ED), Accompanied Note Time of Disposition: 06:25
== END 2016-10-06 06:55 | disposition home or self-care (01) ==
LOC: ED 03:31
DX: J45.901 Unspecified asthma with (acute) exacerbation (principal); Z88.0 Allergy status to penicillin; Z88.8 Allergy status to other drugs, medicaments and biological substances
CPT/HCPCS: 71020; 94640; 96372; 99284; J2930

== ENCOUNTER 2016-10-14 09:24 | Emergency (ER) | payer SELFPAY ==
[2016-10-14] MEDS ORDERED: DUONEB 0.5 MG-3 MG/3 ML SOLN IH ONE (09:29)
[2016-10-14] MEDS ORDERED: PROVENTIL IH ONE ×2 (10:56→12:26)
--- NOTE | 2016-10-14 11:00 | Emergency Department Report ---
ED Asthma HPI - General Chief Complaint: Dyspnea/Respdistress Stated Complaint: SOPHY Time Seen by Provider: 10/14/16 09:29 Source: patient, EMS, RN notes reviewed Mode of arrival: Stretcher Limitations: No Limitations - History of Present Illness Initial Comments: 51-year-old female presents to the emergency department via EMS complaining of shortness of breath. Patient reports difficulty breathing beginning this morning at 4:30 AM. She reports using her albuterol MDI multiple times. She also administered 5 nebulizer treatments at home. She describes tightness in her chest but denies cough or fever. EMS reports that on their arrival, the patient was speaking in 3-4 word sentences. Patient was administered 2.5 mg of albuterol, 125 mg of IV Solu-Medrol, and 2 g of IV magnesium en route to the emergency department. EMS reports that the patient's room air oxygen saturation was 97%. There are no other complaints. MD Complaint: "asthma attack" -: Sudden, This morning Time: 04:30 Asthma History: adult onset, history of frequent attac, previously intubated (x1 ) Severity: severe, similar to prior Context: none known Associated Symptoms: none Treatments Prior to Arrival: inhaled bronchodilator, IV steroid, other ( magnesium) - Related Data Current Asthma Therapy: inhaled bronchodilator, inhaled steroid Home Medications Medication Instructions Recorded Confirmed Last Taken Fluticasone [Flonase] 2 dispenser BID 06/15/16 10/14/16 09/12/16 Fluticasone/Salmeterol [Advair 2 device PO DAILY 06/15/16 10/14/16 09/12/16 Diskus 250-50 mcg] Montelukast [Singulair] 10 mg PO QPM 06/15/16 10/14/16 09/12/16 Previous Rx's Medication Instructions Recorded Last Taken Type Azithromycin [Zithromax] 250 mg PO DAILY #6 tablet 09/12/16 Unknown Rx ALBUTEROL NEB's [Proventil 0.083% 2.5 mg IH QID PRN #90 dose 10/06/16 Unknown Rx NEBS] Albuterol Sulfate [Ventolin HFA] 2 puff IH Q4H PRN #1 hfa.aer.ad 10/06/16 Unknown Rx Benzonatate [Tessalon Perles] 100 mg PO Q8HR PRN #30 capsule 10/14/16 Unknown Rx predniSONE [Deltasone] 3 tab PO QDAY #15 tab 10/14/16 Unknown Rx Allergies Allergy/AdvReac Type Severity Reaction Status Date / Time erythromycin base Allergy Vomiting Verified 04/28/16 13:37 Penicillins Allergy Vomiting Verified 04/28/16 13:37 ED Review of Systems ROS: Stated complaint: SOPHY Other details as noted in HPI Comment: All other systems reviewed and negative Respiratory: shortness of breath, wheezing Cardiovascular: chest pain (tightness) ED Past Medical Hx - Past Medical History Previous Medical History?: Yes Hx Congestive Heart Failure: No Hx Diabetes: No Hx Pulmonary Embolism: No Hx Asthma: Yes Hx COPD: No Hx Tuberculosis: No Hx HIV: No - Surgical History Past Surgical History?: Yes Additional Surgical History: tubal ligation - Family History Family history: no significant - Social History Smoking Status: Never Smoker Substance Use Type: None - Medications Home Medications: Home Medications Medication Instructions Recorded Confirmed Last Taken Type Fluticasone [Flonase] 2 dispenser BID 06/15/16 10/14/16 09/12/16 History Fluticasone/Salmeterol [Advair 2 device PO DAILY 06/15/16 10/14/16 09/12/16 History Diskus 250-50 mcg] Montelukast [Singulair] 10 mg PO QPM 06/15/16 10/14/16 09/12/16 History Azithromycin [Zithromax] 250 mg PO DAILY #6 tablet 09/12/16 10/14/16 Unknown Rx ALBUTEROL NEB's [Proventil 0.083% 2.5 mg IH QID PRN #90 dose 10/06/16 10/14/16 Unknown Rx NEBS] Albuterol Sulfate [Ventolin HFA] 2 puff IH Q4H PRN #1 hfa.aer.ad 10/06/16 Unknown Rx Benzonatate [Tessalon Perles] 100 mg PO Q8HR PRN #30 capsule 10/14/16 Unknown Rx predniSONE [Deltasone] 3 tab PO QDAY #15 tab 10/14/16 Unknown Rx ED Physical Exam - General Limitations: No Limitations General appearance: alert, in distress (moderate respiratory distress) - Head Head exam: Present: atraumatic, normocephalic - Eye Eye exam: Present: normal appearance, PERRL, EOMI - ENT ENT exam: Present: normal exam, normal orophraynx, mucous membranes moist - Neck Neck exam: Present: normal inspection, full ROM. Absent: tenderness - Respiratory Respiratory exam: Present: respiratory distress (moderate respiratory distress with increased work of breathing and tachypnea), wheezes (diffuse bilateral posterior expiratory) - Cardiovascular Cardiovascular Exam: Present: regular rate, normal rhythm, normal heart sounds - GI/Abdominal GI/Abdominal exam: Present: soft, normal bowel sounds. Absent: distended, tenderness - Extremities Exam Extremities exam: Present: normal inspection, full ROM. Absent: tenderness - Back Exam Back exam: Present: normal inspection, full ROM. Absent: tenderness - Neurological Exam Neurological exam: Present: alert, oriented X3. Absent: motor sensory deficit - Skin Skin exam: Present: warm, dry, intact ED Course Vital Signs 10/14/16 10/14/16 10/14/16 09:25 09:30 09:41 Temperature 98.6 F Pulse Rate 97 H 104 H Pulse Rate [ Anterior Bilateral Throughout] Respiratory 18 16 Rate Respiratory Rate [Anterior Bilateral Throughout] Blood Pressure 148/92 149/90 149/90 O2 Sat by Pulse 100 100 Oximetry 10/14/16 10/14/16 10/14/16 09:51 09:54 09:55 Temperature Pulse Rate 116 H Pulse Rate [ 111 H 109 H Anterior Bilateral Throughout] Respiratory 18 Rate Respiratory 18 18 Rate [Anterior Bilateral Throughout] Blood Pressure 128/89 O2 Sat by Pulse 97 Oximetry 10/14/16 10/14/16 10/14/16 09:56 10:01 10:11 Temperature Pulse Rate 89 Pulse Rate [ Anterior Bilateral Throughout] Respiratory 30 H 12 16 Rate Respiratory Rate [Anterior Bilateral Throughout] Blood Pressure 128/89 128/89 O2 Sat by Pulse 94 95 91 Oximetry 10/14/16 10/14/16 10/14/16 10:21 10:30 10:41 Temperature Pulse Rate 86 86 90 Pulse Rate [ Anterior Bilateral Throughout] Respiratory 17 20 18 Rate Respiratory Rate [Anterior Bilateral Throughout] Blood Pressure 133/82 127/76 127/76 O2 Sat by Pulse 91 93 92 Oximetry 10/14/16 10/14/16 10/14/16 10:51 11:00 11:11 Temperature Pulse Rate 89 82 78 Pulse Rate [ Anterior Bilateral Throughout] Respiratory 15 19 14 Rate Respiratory Rate [Anterior Bilateral Throughout] Blood Pressure 119/82 123/79 123/79 O2 Sat by Pulse 96 94 100 Oximetry 10/14/16 10/14/16 10/14/16 11:21 11:25 11:30 Temperature Pulse Rate 89 95 H Pulse Rate [ 89 Anterior Bilateral Throughout] Respiratory 19 16 Rate Respiratory 19 Rate [Anterior Bilateral Throughout] Blood Pressure 125/75 110/75 O2 Sat by Pulse 98 95 Oximetry 10/14/16 10/14/16 10/14/16 11:41 11:51 12:00 Temperature Pulse Rate 96 H 95 H 93 H Pulse Rate [ Anterior Bilateral Throughout] Respiratory 16 19 18 Rate Respiratory Rate [Anterior Bilateral Throughout] Blood Pressure 110/75 124/75 113/73 O2 Sat by Pulse 93 91 Oximetry 10/14/16 10/14/16 10/14/16 12:11 12:21 12:30 Temperature Pulse Rate 91 H 92 H 91 H Pulse Rate [ Anterior Bilateral Throughout] Respiratory 18 19 17 Rate Respiratory Rate [Anterior Bilateral Throughout] Blood Pressure 113/73 118/75 120/81 O2 Sat by Pulse 90 91 Oximetry 10/14/16 10/14/16 10/14/16 12:41 12:51 13:00 Temperature Pulse Rate 90 96 H 115 H Pulse Rate [ Anterior Bilateral Throughout] Respiratory 18 19 16 Rate Respiratory Rate [Anterior Bilateral Throughout] Blood Pressure 120/81 120/81 123/81 O2 Sat by Pulse 91 90 97 Oximetry 10/14/16 10/14/16 10/14/16 13:11 13:20 13:21 Temperature Pulse Rate 81 118 H Pulse Rate [ 97 H Anterior Bilateral Throughout] Respiratory 11 L 13 Rate Respiratory 16 Rate [Anterior Bilateral Throughout] Blood Pressure 123/81 123/81 O2 Sat by Pulse 100 100 Oximetry - Reevaluation(s) Reevaluation #1: 10/14/16 11:00 Patient reports feeling better after 2 DuoNeb treatments. She is able to speak in complete sentences at this time. She does state that she is still having some difficulty breathing. Reexamination continues to show diffuse bilateral wheezing, although improved since arrival. Giving additional albuterol nebulizer treatments. Reevaluation #2: 10/14/16 12:27 Patient continues to complain of some wheezing following this last round of nebulizer treatments. Auscultation of the lungs reveal increased air movement, but there remains some expiratory wheezing. Her oxygen saturation on room air is 90%. Giving additional nebulized albuterol. Obtaining chest x-ray. Reevaluation #3: 10/14/16 14:05 Following additional nebulizer treatment, the patient states that she is back to her baseline. Her room air oxygen saturation is 96%.. The chest x-ray reveals no acute cardiopulmonary abnormality. Patient will be discharged home at this time to follow up with her primary care physician. ED Medical Decision Making - Radiology Data Radiology results: report reviewed, image reviewed Chest x-ray shows no acute cardiopulmonary abnormality. - Differential Diagnosis asthma exacerbation Critical care attestation.: If time is entered above; I have spent that time in minutes in the direct care of this critically ill patient, excluding procedure time. ED Disposition Clinical Impression: Asthma exacerbation Disposition: DISCHARGED TO HOME OR SELFCARE Is pt being admited?: No Condition: Stable Instructions: Asthma (ED) Additional Instructions: Take all medications as directed. Be sure to follow up with your doctor. If symptoms worsen, or if new symptoms develop, return to the emergency department. Prescriptions: Benzonatate [Tessalon Perles] 100 mg PO Q8HR PRN #30 capsule PRN Reason: Cough predniSONE [Deltasone] 3 tab PO QDAY #15 tab Referrals: PRIMARY CARE, [Primary Care Provider] - 3-5 Days Time of Disposition: 14:06
--- NOTE | 2016-10-14 12:46 | XRay Report ---
PORTABLE CHEST INDICATION: Difficulty breathing. COMPARISON: 10/06/2016 FINDINGS: Portable, frontal chest radiograph demonstrates poorer inspiration with grossly normal cardiomediastinal silhouette and clear lungs except for mild right lung base densities, possibly atelectasis/infiltrate. No large pleural effusions or CHF. EKG leads. Stable bones. CONCLUSION: New slight right lung base atelectasis/infiltrate, as described. Followup on subsequent exams as well. Thank you for the opportunity to participate in this patient's care.
[2016-10-14 13:30] VITALS: BP 123/81
== END 2016-10-14 14:15 | disposition home or self-care (01) ==
LOC: ED 09:24
DX: J45.901 Unspecified asthma with (acute) exacerbation (principal)
CPT/HCPCS: 71010; 94640; 99284

== ENCOUNTER 2016-12-03 06:15 | Inpatient (IN) | payer SELFPAY ==
[2016-12-03] MEDS ORDERED: PROVENTIL IH ONE ×3 (06:25→10:16)
[2016-12-03] MEDS ORDERED: ATROVENT IH ONE ×2 (06:25→06:41)
[2016-12-03] MEDS ORDERED: MAGNESIUM SULFATE 2GM/50ML 2 GM/50 ML BAG IV ONE ×2 (06:29→06:37)
--- NOTE | 2016-12-03 06:39 | Emergency Department Report ---
HPI - General Time Seen by Provider: 12/03/16 06:37 - HPI HPI: This is a 51-year-old Afro-Mal[place]ian female presents to the emergency department , driving herself and from work, with complaint of shortness of breath, wheezing and a dry cough that she believes is an asthma attack. She has a history of asthma. She used her inhaler and a breathing machine at work without any relief. No recent travel or sick contacts at home. She does not have a primary care physician. She denies any tobacco or illicit drug use or abuse. She denies any fever, chest pain, nausea, vomiting or diaphoresis. She denies ever needing intubation secondary to her asthma. Symptoms worsen with exertion. No alleviating factors as of yet. ED Past Medical Hx - Past Medical History Hx Congestive Heart Failure: No Hx Diabetes: No Hx Pulmonary Embolism: No Hx Asthma: Yes Hx COPD: No Hx Tuberculosis: No Hx HIV: No - Surgical History Additional Surgical History: tubal ligation - Social History Smoking Status: Never Smoker Substance Use Type: None - Medications Home Medications: Home Medications Medication Instructions Recorded Confirmed Last Taken Type Fluticasone [Flonase] 2 dispenser BID 06/15/16 12/03/16 09/12/16 History Fluticasone/Salmeterol [Advair 2 device PO DAILY 06/15/16 12/03/16 09/12/16 History Diskus 250-50 mcg] Montelukast [Singulair] 10 mg PO QPM 06/15/16 12/03/16 09/12/16 History Azithromycin [Zithromax] 250 mg PO DAILY #6 tablet 09/12/16 12/03/16 Unknown Rx ALBUTEROL NEB's [Proventil 0.083% 2.5 mg IH QID PRN #90 dose 10/06/16 12/03/16 Unknown Rx NEBS] Albuterol Sulfate [Ventolin HFA] 2 puff IH Q4H PRN #1 hfa.aer.ad 10/14/16 Unknown Rx Benzonatate [Tessalon Perles] 100 mg PO Q8HR PRN #30 capsule 10/14/16 12/03/16 Unknown Rx predniSONE [Deltasone] 3 tab PO QDAY #15 tab 10/14/16 12/03/16 Unknown Rx ED Review of Systems ROS: Stated complaint: DIFFICULTY IN BREATHING Other details as noted in HPI Comment: All other systems reviewed and negative Constitutional: denies: chills, fever Eyes: denies: eye pain, eye discharge, vision change ENT: denies: ear pain, throat pain Respiratory: cough, shortness of breath, wheezing Cardiovascular: denies: chest pain, edema Gastrointestinal: denies: abdominal pain, nausea, diarrhea Genitourinary: denies: urgency, dysuria, discharge Musculoskeletal: denies: back pain, joint swelling, arthralgia Skin: denies: rash, lesions Neurological: denies: headache, weakness, paresthesias Physical Exam - Physical Exam Physical Exam: GENERAL: The patient is well-developed well-nourished. HEENT: Normocephalic. Atraumatic. Extraocular motions are intact. Patient has moist mucous membranes. Pupils equal reactive to light bilaterally. NECK: Supple. Trachea is midline. CHEST/LUNGS: Moderate to severe wheezing throughout the chest. There is tachypnea with some supraventricular accessory muscle use. There is some respiratory distress noted. HEART/CARDIOVASCULAR: Regular. There is mild tachycardia. There is no gallop rub or murmur. ABDOMEN: Abdomen is soft, nontender. Patient has normal bowel sounds. There is no abdominal distention. SKIN: Skin is warm and dry. NEURO: The patient is awake, alert, and oriented. The patient is cooperative. The patient has no focal neurologic deficits. The patient has normal speech. MUSCULOSKELETAL: There is no tenderness or deformity. There is no limitation range of motion. There is no evidence of acute injury. ED Medical Decision Making - Lab Data Result diagrams: 12/03/16 06:46 12/03/16 06:46 - EKG Data -: EKG Interpreted by Me EKG shows normal: sinus rhythm, axis, intervals, QRS complexes, ST-T waves Rate: tachycardia (112 bpm) - EKG Data When compared to previous EKG there are: previous EKG unavailable Interpretation: normal EKG (with sinus tachycardia) - Radiology Data Radiology results: report reviewed, image reviewed interpreted by me: Chest x-ray did not show any acute process. Heart is normal shape and size. No effusions. No pneumothorax. No signs of pneumonia seen. CT angiography of the chest does not show any signs of pulmonary embolism or dissection or any acute process. - Medical Decision Making 51-year-old female presents with severe bronchospasm and asthma-like symptoms with some respiratory distress. She was given immediate Solu-Medrol, magnesium , placed on a nonrebreather and received a long albuterol and Atrovent breathing treatment. She was reevaluated after this and was no longer in respiratory distress but still had a moderate amount of wheezing and bronchospasm. Chest x-ray did not show any acute process. Her labs were mostly unremarkable except for a slightly elevated and equivocal d-dimer. For this reason a CT angiography of the chest was done that did not show any PE or dissection. We turned off the patient supplemental oxygen and she will had a pulse ox went down to about 90. For this reason the patient will be admitted to the hospital for serial nebulized treatments and steroids and further evaluation. She's been accepted for admission by the hospitalist service and the nurse practitioner Kimmy. - Differential Diagnosis asthma, bronchitis, pneumonia, PE Critical Care Time: No Critical care attestation.: If time is entered above; I have spent that time in minutes in the direct care of this critically ill patient, excluding procedure time. ED Disposition Clinical Impression: Hypoxia, SOB (shortness of breath), Respiratory distress Asthmatic bronchitis with exacerbation Qualifiers: Asthma severity: unspecified severity Qualified Code(s): J45.901 - Unspecified asthma with (acute) exacerbation Disposition: 09 OP ADMIT IP TO THIS HOSP Is pt being admited?: Yes Condition: Stable Referrals: PRIMARY CARE, [Primary Care Provider] - 3-5 Days Time of Disposition: 12:00
[2016-12-03 07:10] LABS: Anion Gap 18 mmol/L; Blood Urea Nitrogen 10 mg/dL (7-17); Calcium 8.6 mg/dL (8.4-10.2); Carbon Dioxide 24 mmol/L (22-30); Chloride 101.9 mmol/L (98-107); Glucose 98 mg/dL (65-100); Potassium 3.8 mmol/L (3.6-5.0); Sodium 140 mmol/L (137-145)
[2016-12-03 07:15] LABS: Basophils % (Auto) 2.9 % (0.0-1.8); Eosinophils % (Auto) 10.7 % (0.0-4.3); Hematocrit 39.9 % (30.3-42.9); Mean Corpuscular HGB Conc 33 % (30-34); Mean Corpuscular Hemoglobin 30 pg (28-32); Mean Corpuscular Volume 93 fl (79-97); Platelet Count 239 K/mm3 (140-440); Red Blood Count 4.29 M/mm3 (3.65-5.03); Red Cell Distribution Width 17.3 % (13.2-15.2)
--- NOTE | 2016-12-03 07:53 | XRay Report ---
AP CHEST: HISTORY: Shortness of breath Compared to 10/14/16. AP view of the chest demonstrates a normal mediastinal and cardiac contour with clear lungs and normal bony and soft tissue structures. IMPRESSION: Unremarkable AP chest.
[2016-12-03] MEDS ORDERED: NACL ONE (08:58)
--- NOTE | 2016-12-03 10:05 | Cat Scan Report ---
CT angiography of the chest with 3-D reconstructed images. History: Shortness of breath and elevated d-dimer. Findings: There is no evidence of pulmonary emboli. The lungs are clear. There is no pleural fluid. The mediastinum and hilar regions appear normal. Impression: Negative study.
--- NOTE | 2016-12-03 10:20 | Admit Criteria Form ---
Admission Criteria Documentation: ASTHMA Clinical Indications for Admission to Inpatient Care (Place 'X' for any and all applicable criteria): Admission is indicated for ANY ONE of the following (1)(2)(3)(4)(5): [ ]I. Absent or markedly diminished breath sounds (silent chest) [X]II. Oxygen saturation < 92% [ ]III. PaCO2 = / > 42 mm Hg (5.6 kPa) [ ]IV. Peak expiratory flow rate < 40% of predicted or personal best after treatment. [ ]V. Peak expiratory flow rate < 33% of predicted or personal before after treatment [ ]. Change in mental status [ ]VII. Ventilatory support required [ ]VIII. PaO2 < 60 mm Hg (8.0 kPa) [ ]IX. Cyanosis [ ]X. Cardiac dysrhythmia (e.g., bradycardia) [ ]XI. Hemodynamic instability [ ]XII. Radiographic evidence of complication requiring inpatient treatment (e.g., pneumonia, pneumothorax) [X]XIII. Inpatient admission required rather than observation care (also use Asthma: Observation Care guideline as appropriate) because of ANY ONE of the following: []a) Respiratory finding that is severe or persistent (eg, dyspnea, tachypnea, accessory muscle use) [ ]b) Airflow measurements less than 60% of predicted or personal best that persist (e.g., over 24 hours) or worsen despite treatments [X]c) Supplemental oxygen or respiratory treatments for over 24 hours that are performable only in acute inpatient setting [ ]d) Other condition, treatment or monitoring requiring inpatient admission. Extended stay beyond goal length of stay may be needed for (26)(27)(28): [ ]a) Severe respiratory failure (23) (29) (30) [ ]b) Secondary causes and complications (25) [ ]c) Status asthmaticus [ ]d) Chronic obstructive asthma [ ]e) Older patients (29) [ ]f) Slow resolution [ ]g) Clinically significant exacerbation of comorbidities (eg, dick. heart failure, atrial fibrillation) The original [facility] content created by [employer] has been revised. The portions of the content which have been revised are identified through the use of italic text or in bold, and [facility] [employer] has neither reviewed nor approved the modified material. All other unmodified content is copyright [facility] Please see references footnoted in the original [facility] edition 2016 Admission Criteria Met: Yes
[2016-12-03] MEDS ORDERED: PROVENTIL IH PRN ×3 (12:54→23:36)
[2016-12-03] MEDS ORDERED: ZOFRAN IV PRN ×2 (12:54→23:16)
[2016-12-03] MEDS ORDERED: MILK OF MAGNESIA PO PRN ×2 (12:54→23:16)
[2016-12-03] MEDS ORDERED: DULCOLAX PR PRN ×2 (12:54→23:16)
[2016-12-03] MEDS: TYLENOL PO PRN ×2 (13:50→23:08)
[2016-12-03] MEDS: HEPARIN SUB-Q SCH ×3 (14:00→23:08)
[2016-12-03 17:05] LABS: ISTAT Base Excess -3; ISTAT HCO3 23.1; ISTAT PCO2 43.2 (35-45); ISTAT PH 7.335 (7.35-7.45); ISTAT PO2 81 (80-105); ISTAT SO2 95; ISTAT TCO2 24
[2016-12-03] MEDS ORDERED: PULMICORT IH SCH (20:00)
--- NOTE | 2016-12-03 23:08 | History and Physical Report ---
History of Present Illness Date of examination: 12/03/16 Date of admission: 12/03/16 12:20 Chief complaint: Increasing Sob/Wheezing for 4 days History of present illness: This is a 51-year-old Afro-Martiniquais female presents to the emergency department , driving herself and from work, with complaint of shortness of breath, wheezing and a dry cough that she believes is an asthma attack. She has a history of asthma. She used her inhaler and a breathing machine at work without any relief. No recent travel or sick contacts at home. She does not have a primary care physician. She denies any tobacco or illicit drug use or abuse. She denies any fever, chest pain, nausea, vomiting or diaphoresis. She denies ever needing intubation secondary to her asthma. Symptoms worsen with exertion. No alleviating factors as of yet. ED Past Medical Hx - Past Medical History Hx Congestive Heart Failure: No Hx Diabetes: No Hx Pulmonary Embolism: No Hx Asthma: Yes Hx COPD: No Hx Tuberculosis: No Hx HIV: No - Surgical History Additional Surgical History: tubal ligation - Social History Smoking Status: Never Smoker Substance Use Type: None - Medications Home Medications: Home Medications Medication Instructions Recorded Confirmed Last Taken Type Fluticasone [Flonase] 2 dispenser BID 06/15/16 12/03/16 09/12/16 History Fluticasone/Salmeterol [Advair 2 device PO DAILY 06/15/16 12/03/16 09/12/16 History Diskus 250-50 mcg] Montelukast [Singulair] 10 mg PO QPM 06/15/16 12/03/16 09/12/16 History Azithromycin [Zithromax] 250 mg PO DAILY #6 tablet 09/12/16 12/03/16 Unknown Rx ALBUTEROL NEB's [Proventil 0.083% 2.5 mg IH QID PRN #90 dose 10/06/16 12/03/16 Unknown Rx NEBS] Albuterol Sulfate [Ventolin HFA] 2 puff IH Q4H PRN #1 hfa.aer.ad 10/14/16 Unknown Rx Benzonatate [Tessalon Perles] 100 mg PO Q8HR PRN #30 capsule 10/14/16 12/03/16 Unknown Rx predniSONE [Deltasone] 3 tab PO QDAY #15 tab 10/14/16 12/03/16 Unknown Rx ED Review of Systems ROS: Stated complaint: DIFFICULTY IN BREATHING Other details as noted in HPI Comment: All other systems reviewed and negative Constitutional: denies: chills, fever Eyes: denies: eye pain, eye discharge, vision change ENT: denies: ear pain, throat pain Respiratory: cough, shortness of breath, wheezing Cardiovascular: denies: chest pain, edema Gastrointestinal: denies: abdominal pain, nausea, diarrhea Genitourinary: denies: urgency, dysuria, discharge Musculoskeletal: denies: back pain, joint swelling, arthralgia Skin: denies: rash, lesions Neurological: denies: headache, weakness, paresthesias Past History Past Medical History: other (Asthma) Medications and Allergies Allergies Allergy/AdvReac Type Severity Reaction Status Date / Time erythromycin base Allergy Vomiting Verified 04/28/16 13:37 Penicillins Allergy Vomiting Verified 04/28/16 13:37 Home Medications Medication Instructions Recorded Confirmed Last Taken Type Fluticasone [Flonase] 2 dispenser BID 06/15/16 12/03/16 09/12/16 History Fluticasone/Salmeterol [Advair 2 device PO DAILY 06/15/16 12/03/16 09/12/16 History Diskus 250-50 mcg] Montelukast [Singulair] 10 mg PO QPM 06/15/16 12/03/16 09/12/16 History Azithromycin [Zithromax] 250 mg PO DAILY #6 tablet 09/12/16 12/03/16 Unknown Rx ALBUTEROL NEB's [Proventil 0.083% 2.5 mg IH QID PRN #90 dose 10/06/16 12/03/16 Unknown Rx NEBS] Albuterol Sulfate [Ventolin HFA] 2 puff IH Q4H PRN #1 hfa.aer.ad 10/14/16 Unknown Rx Benzonatate [Tessalon Perles] 100 mg PO Q8HR PRN #30 capsule 10/14/16 12/03/16 Unknown Rx predniSONE [Deltasone] 3 tab PO QDAY #15 tab 10/14/16 12/03/16 Unknown Rx Active Meds: Active Medications Acetaminophen (Tylenol) 650 mg PO Q4H PRN PRN Reason: Pain MILD(1-3)/Fever >100.5/CLAIRE Last Admin: 12/03/16 13:50 Dose: 650 mg Albuterol (Proventil) 2.5 mg IH Q3HRT PRN PRN Reason: Shortness Of Breath Last Admin: 12/03/16 20:51 Dose: 2.5 mg Bisacodyl (Dulcolax) 10 mg SD QDAY PRN PRN Reason: Constipation unrelieved by MOM Budesonide (Pulmicort) 0.[address] [facility] Last Admin: 12/03/16 20:28 Dose: 0.5 mg Heparin Sodium (Porcine) (Heparin) 5,000 unit SUB-Q Q8HR [facility] Last Admin: 12/03/16 14:00 Dose: Not Given Magnesium Hydroxide (Milk Of Magnesia) 30 ml PO Q4H PRN PRN Reason: Constipation Ondansetron HCl (Zofran) 4 mg IV Q4H PRN PRN Reason: Nausea And Vomiting Review of Systems All systems: negative Respiratory: cough, shortness of breath, wheezing Exam - Physical Exam Narrative exam: Wheezing - Constitutional Vitals: Temp Pulse Resp BP Pulse Ox 98.4 F 85 20 126/81 98 12/03/16 15:00 12/03/16 20:30 12/03/16 20:30 12/03/16 15:00 12/03/16 12:21 General appearance: Present: no acute distress, well-nourished - EENT Eyes: Present: PERRL ENT: hearing intact, clear oral mucosa - Neck Neck: Present: supple, normal ROM - Respiratory Respiratory effort: normal Respiratory: bilateral: CTA - Cardiovascular Heart rate: 80 Rhythm: regular Heart Sounds: Present: S1 & S2. Absent: rub, click - Extremities Extremities: pulses symmetrical, No edema Peripheral Pulses: within normal limits - Abdominal General gastrointestinal: Present: soft, non-tender, non-distended, normal bowel sounds Female genitourinary: Present: normal - Integumentary Integumentary: Present: clear, warm, dry - Musculoskeletal Musculoskeletal: gait normal, strength equal bilaterally - Psychiatric Psychiatric: appropriate mood/affect, intact judgment & insight - Neurologic Neurologic: CNII-XII intact, moves all extremities Results - Labs CBC & Chem 7: 12/03/16 06:46 12/03/16 06:46 Labs: Laboratory Last Values WBC 6.0 K/mm3 (4.5-11.0) 12/03/16 06:46 RBC 4.29 M/mm3 (3.65-5.03) 12/03/16 06:46 Hgb 13.0 gm/dl (10.1-14.3) 12/03/16 06:46 Hct 39.9 % (30.3-42.9) 12/03/16 06:46 MCV 93 fl (79-97) 12/03/16 06:46 MCH 30 pg (28-32) 12/03/16 06:46 MCHC 33 % (30-34) 12/03/16 06:46 RDW 17.3 % (13.2-15.2) H 12/03/16 06:46 Plt Count 239 K/mm3 (140-440) 12/03/16 06:46 Lymph % (Auto) 32.7 % (13.4-35.0) 12/03/16 06:46 [place] % (Auto) 7.0 % (0.0-7.3) 12/03/16 06:46 Eos % (Auto) 10.7 % (0.0-4.3) H 12/03/16 06:46 Baso % (Auto) 2.9 % (0.0-1.8) H 12/03/16 06:46 Lymph # 2.0 K/mm3 (1.2-5.4) 12/03/16 06:46 [place] # 0.4 K/mm3 (0.0-0.8) 12/03/16 06:46 Eos # 0.6 K/mm3 (0.0-0.4) H 12/03/16 06:46 Baso # 0.2 K/mm3 (0.0-0.1) H 12/03/16 06:46 Seg Neutrophils % 46.7 % (40.0-70.0) 12/03/16 06:46 Seg Neutrophils # 2.8 K/mm3 (1.8-7.7) 12/03/16 06:46 D-Dimer 253.22 ng/mlDDU (0-234) H 12/03/16 07:57 POC ABG pH 7.335 (7.35-7.45) L 12/03/16 16:51 POC ABG pCO2 43.2 (35-45) 12/03/16 16:51 POC ABG pO2 81 (80-105) 12/03/16 16:51 POC ABG HCO3 23.1 12/03/16 16:51 POC ABG Total CO2 24 12/03/16 16:51 POC ABG O2 Sat 95 12/03/16 16:51 POC ABG Base Excess -3 12/03/16 16:51 FiO2 28 % 12/03/16 16:51 Sodium 140 mmol/L (137-145) 12/03/16 06:46 Potassium 3.8 mmol/L (3.6-5.0) 12/03/16 06:46 Chloride 101.9 mmol/L (98-107) 12/03/16 06:46 Carbon Dioxide 24 mmol/L (22-30) 12/03/16 06:46 Anion Gap 18 mmol/L 12/03/16 06:46 BUN 10 mg/dL (7-17) 12/03/16 06:46 Creatinine 0.5 mg/dL (0.7-1.2) L 12/03/16 06:46 Estimated GFR > 60 ml/min 12/03/16 06:46 BUN/Creatinine Ratio 20.00 % 12/03/16 06:46 Glucose 98 mg/dL (65-100) 12/03/16 06:46 Calcium 8.6 mg/dL (8.4-10.2) 12/03/16 06:46 Troponin T < 0.010 ng/mL (0.00-0.029) 12/03/16 06:46 - Imaging and Cardiology Chest x-ray: report reviewed (NAF) Assessment and Plan Advance Directives: Yes (Full code) Plan of care discussed with patient/family: Yes - Patient Problems (1) Asthma with acute exacerbation Current Visit: Yes Status: Acute Qualifiers: Asthma severity: severe persistent Qualified Code(s): J45.51 - Severe persistent asthma with (acute) exacerbation Plan to address problem: IV solumedrol 125 mg q 8h Levaquin IVPB and Duonebs q 6 rtc and q3h (2) DVT prophylaxis Current Visit: Yes Status: Acute Plan to address problem: On lovenox sq q12h
[2016-12-03] MEDS ORDERED: PROAIR IH PRN (23:14)
[2016-12-03] MEDS ORDERED: TESSALON PERLES PO PRN (23:14)
[2016-12-03] MEDS ORDERED: TYLENOL PO PRN (23:16)
[2016-12-03] MEDS ORDERED: DILAUDID IV PRN (23:16)
[2016-12-04] MEDS: FLONASE NS SCH ×3 (00:49→22:49)
[2016-12-04] MEDS: D5NS 1,000 ML IV SCH ×2 (05:09→17:22)
[2016-12-04 05:42] LABS: Hematocrit 38.3 % (30.3-42.9); Hemoglobin 12.6 gm/dl (10.1-14.3); Mean Corpuscular HGB Conc 33 % (30-34); Mean Corpuscular Hemoglobin 30 pg (28-32); Mean Corpuscular Volume 91 fl (79-97); Platelet Count 212 K/mm3 (140-440); Red Blood Count 4.22 M/mm3 (3.65-5.03); Red Cell Distribution Width 17.7 % (13.2-15.2); White Blood Count 7.2 K/mm3 (4.5-11.0)
[2016-12-04 05:57] LABS: Anion Gap 17 mmol/L; Blood Urea Nitrogen 12 mg/dL (7-17); Calcium 8.8 mg/dL (8.4-10.2); Carbon Dioxide 23 mmol/L (22-30); Chloride 103.2 mmol/L (98-107); Glucose 155 mg/dL (65-100); Potassium 4.3 mmol/L (3.6-5.0); Sodium 139 mmol/L (137-145)
[2016-12-04 06:53] LABS: Basophils % (Manual) 0 % (0.0-1.8); Blastocytes % (Manual) 0 %; Diff Status Complete; Eosinophils % (Manual) 0 % (0.0-4.3); Platelet Estimate Consistent w Auto; Total Cells Counted Percent 0
[2016-12-04] MEDS: PULMICORT IH SCH ×2 (08:06→21:16)
[2016-12-04] MEDS: BROVANA NEBU IH SCH ×2 (08:06→21:16)
--- NOTE | 2016-12-04 08:21 | Query- Dyspnea ---
Cathy Myrick Mayra Date: 12/04/16 Automatic Coil Machine Operator/CDS: Telma Phone#:[phone] Exercise your independent professional judgment when responding to query. Questions asked do not imply a particular answer is desired or expected. We greatly appreciate your clarification on this issue. Clinical Documentation States: 51-year-old Afro-[place] female presents to the emergency department, driving herself and from work, with complaint of shortness of breath, wheezing and a dry cough that she believes is an asthma attack. She has a history of asthma. "...with severe bronchospasm and asthma-like symptoms with some respiratory distress." "We turned off the patient supplemental oxygen and she will had a pulse ox went down to about 90." ED Disposition Clinical Impression: Hypoxia, SOB (shortness of breath), Respiratory distress ROS: Respiratory: cough, shortness of breath, wheezing PE: Moderate to severe wheezing throughout the chest. There is tachypnea with some supraventricular accessory muscle use. There is some respiratory distress noted. Clinical Findings Show: ABG: [ ] PH: , [ ] PaO2: , [ ] PaCO2: , [ ] SaO2: ___ [ ] RR: [X] Accessory muscle use [ ] Drop of 15mmHg from previous PaO2 [ ] Raise of 15mmHg from prior PaCO2 Please clarify if the patient had any of the following conditions based on the above clinical findings: [ ] Respiratory Failure [x ] Acute [ ] Acute on Chronic [ ] Chronic [ ] Respiratory failure due to trauma [ ] Acute Respiratory Distress Syndrome [ ] Other: [ ] Unable to determine [ ] Comment/Explanation: Present on Admission: [ x] Yes (Y) [ ] Clinically undeterminable (W) [ ] No (N) Please also document response in your Progress Notes and/or Discharge Summary and indicate if the condition was present on admission. MTDD
[2016-12-04] MEDS: PERCOCET 5/325 PO PRN (08:58)
[2016-12-04] MEDS: LEVAQUIN 750MG/150ML 750 MG/150 ML BAG IV SCH (09:00)
[2016-12-04] MEDS: PEPCID PO SCH ×2 (09:00→22:50)
[2016-12-04] MEDS ORDERED: FLUTICASONE PO SCH (10:00)
[2016-12-04] MEDS ORDERED: PEPCID IV SCH (10:00)
[2016-12-04] MEDS ORDERED: SALMETEROL PO SCH (10:00)
--- NOTE | 2016-12-04 10:07 | Progress Note ---
Assessment and Plan Assessment and plan: This is a 51-year-old Afro-Salvadorean female presents to the emergency department , driving herself and from work, with complaint of shortness of breath, wheezing and a dry cough that she believes is an asthma attack. She has a history of severe persistent asthma with daily symptoms, chronic allergic rhinitis. She states that she takes Advair Diskus and Singulair,Claritin Flonase nebulizer and Ventolin rescue. She has been in the ER every month for the past year she's been hospitalized 4 times in the past year. Denies any history of intubation. She recently moved to [place], does not have a primary care physician a rn document improvement and does not have medical insurance. (1) Severe persistent Asthma with acute exacerbation taper IV steroids, continue IV abx , long acting B agonist, inhaled steroid and rescue nebs atc Case management to help her with application for Medicaid and other insurance. 2. Allergic rhinitis Continue Flonase, add saline nasal spray DVT prophylaxis lovenox History Interval history: She is still complaining of sinus congestion, complains of dizziness and exertion, wheezing. Hospitalist Physical - Physical exam Narrative exam: General: Patient appears well in no distress HEENT: MMM, EOMI cardiac: S1-S2 heard lungs: Decreased air entry, wheezing in the upper lungs abdomen: soft, nontender, nondistended bowel sounds positive extremities: no edema clubbing or cyanosis Skin: no rash or lesion Neuro: no focal deficit Psych: appropriate behavior and mood, cognition intact - Constitutional Vitals: Temp Pulse Resp BP Pulse Ox 98.1 F 86 16 119/75 93 12/04/16 08:00 12/04/16 08:23 12/04/16 08:23 12/04/16 08:00 12/04/16 08:07 General appearance: Present: no acute distress, well-nourished Results - Labs CBC & Chem 7: 12/04/16 05:02 12/04/16 05:02 Labs: Laboratory Last Values WBC 7.2 K/mm3 (4.5-11.0) 12/04/16 05:02 RBC 4.22 M/mm3 (3.65-5.03) 12/04/16 05:02 Hgb 12.6 gm/dl (10.1-14.3) 12/04/16 05:02 Hct 38.3 % (30.3-42.9) 12/04/16 05:02 MCV 91 fl (79-97) 12/04/16 05:02 MCH 30 pg (28-32) 12/04/16 05:02 MCHC 33 % (30-34) 12/04/16 05:02 RDW 17.7 % (13.2-15.2) H 12/04/16 05:02 Plt Count 212 K/mm3 (140-440) 12/04/16 05:02 Lymph % (Auto) 32.7 % (13.4-35.0) 12/03/16 06:46 [place] % (Auto) 7.0 % (0.0-7.3) 12/03/16 06:46 Eos % (Auto) 10.7 % (0.0-4.3) H 12/03/16 06:46 Baso % (Auto) 2.9 % (0.0-1.8) H 12/03/16 06:46 Lymph # 2.0 K/mm3 (1.2-5.4) 12/03/16 06:46 [place] # 0.4 K/mm3 (0.0-0.8) 12/03/16 06:46 Eos # 0.6 K/mm3 (0.0-0.4) H 12/03/16 06:46 Baso # 0.2 K/mm3 (0.0-0.1) H 12/03/16 06:46 Add Manual Diff Complete 12/04/16 05:02 Total Counted 100 12/04/16 05:02 Seg Neutrophils % Jet Man 12/04/16 05:02 Seg Neuts % (Manual) 93.0 % (40.0-70.0) H 12/04/16 05:02 Band Neutrophils % 2.0 % 12/04/16 05:02 Lymphocytes % (Manual) 5.0 % (13.4-35.0) L 12/04/16 05:02 Reactive Lymphs % (Man) 0 % 12/04/16 05:02 Monocytes % (Manual) 0 % (0.0-7.3) 12/04/16 05:02 Eosinophils % (Manual) 0 % (0.0-4.3) 12/04/16 05:02 Basophils % (Manual) 0 % (0.0-1.8) 12/04/16 05:02 Metamyelocytes % 0 % 12/04/16 05:02 Myelocytes % 0 % 12/04/16 05:02 Promyelocytes % 0 % 12/04/16 05:02 Blast Cells % 0 % 12/04/16 05:02 Nucleated RBC % Not Reportable 12/04/16 05:02 Seg Neutrophils # 2.8 K/mm3 (1.8-7.7) 12/03/16 06:46 Seg Neutrophils # Man 6.7 K/mm3 (1.8-7.7) 12/04/16 05:02 Band Neutrophils # 0.1 K/mm3 12/04/16 05:02 Lymphocytes # (Manual) 0.4 K/mm3 (1.2-5.4) L 12/04/16 05:02 Abs React Lymphs (Man) 0.0 K/mm3 12/04/16 05:02 Monocytes # (Manual) 0.0 K/mm3 (0.0-0.8) 12/04/16 05:02 Eosinophils # (Manual) 0.0 K/mm3 (0.0-0.4) 12/04/16 05:02 Basophils # (Manual) 0.0 K/mm3 (0.0-0.1) 12/04/16 05:02 Metamyelocytes # 0.0 K/mm3 12/04/16 05:02 Myelocytes # 0.0 K/mm3 12/04/16 05:02 Promyelocytes # 0.0 K/mm3 12/04/16 05:02 Blast Cells # 0.0 K/mm3 12/04/16 05:02 WBC Morphology Not Reportable 12/04/16 05:02 Hypersegmented Neuts Not Reportable 12/04/16 05:02 Hyposegmented Neuts Not Reportable 12/04/16 05:02 Hypogranular Neuts Not Reportable 12/04/16 05:02 Smudge Cells Not Reportable 12/04/16 05:02 Toxic Granulation Not Reportable 12/04/16 05:02 Toxic Vacuolation Not Reportable 12/04/16 05:02 Dohle Bodies Not Reportable 12/04/16 05:02 Pelger-Huet Anomaly Not Reportable 12/04/16 05:02 Saul Rods Not Reportable 12/04/16 05:02 Platelet Estimate Consistent w auto 12/04/16 05:02 Clumped Platelets Not Reportable 12/04/16 05:02 Plt Clumps, EDTA Not Reportable 12/04/16 05:02 Large Platelets Not Reportable 12/04/16 05:02 Giant Platelets Not Reportable 12/04/16 05:02 Platelet Satelliting Not Reportable 12/04/16 05:02 Plt Morphology Comment Not Reportable 12/04/16 05:02 RBC Morphology Not Reportable 12/04/16 05:02 Dimorphic RBCs Not Reportable 12/04/16 05:02 Polychromasia Not Reportable 12/04/16 05:02 Hypochromasia Not Reportable 12/04/16 05:02 Poikilocytosis Not Reportable 12/04/16 05:02 Anisocytosis Not Reportable 12/04/16 05:02 Microcytosis Not Reportable 12/04/16 05:02 Macrocytosis Not Reportable 12/04/16 05:02 Spherocytes Not Reportable 12/04/16 05:02 Pappenheimer Bodies Not Reportable 12/04/16 05:02 Sickle Cells Not Reportable 12/04/16 05:02 Target Cells Not Reportable 12/04/16 05:02 Tear Drop Cells Not Reportable 12/04/16 05:02 Ovalocytes Not Reportable 12/04/16 05:02 Helmet Cells Not Reportable 12/04/16 05:02 [place] Bodies Not Reportable 12/04/16 05:02 [place] Rings Not Reportable 12/04/16 05:02 [place] Cells Not Reportable 12/04/16 05:02 Bite Cells Not Reportable 12/04/16 05:02 Crenated Cell Not Reportable 12/04/16 05:02 Elliptocytes Not Reportable 12/04/16 05:02 Acanthocytes (Spur) Not Reportable 12/04/16 05:02 Rouleaux Not Reportable 12/04/16 05:02 Hemoglobin C Crystals Not Reportable 12/04/16 05:02 Schistocytes Not Reportable 12/04/16 05:02 Malaria parasites Not Reportable 12/04/16 05:02 Jesús Bodies Not Reportable 12/04/16 05:02 Hem Pathologist Commnt No 12/04/16 05:02 D-Dimer 253.22 ng/mlDDU (0-234) H 12/03/16 07:57 POC ABG pH 7.335 (7.35-7.45) L 12/03/16 16:51 POC ABG pCO2 43.2 (35-45) 12/03/16 16:51 POC ABG pO2 81 (80-105) 12/03/16 16:51 POC ABG HCO3 23.1 12/03/16 16:51 POC ABG Total CO2 24 12/03/16 16:51 POC ABG O2 Sat 95 12/03/16 16:51 POC ABG Base Excess -3 12/03/16 16:51 FiO2 28 % 12/03/16 16:51 Sodium 139 mmol/L (137-145) 12/04/16 05:02 Potassium 4.3 mmol/L (3.6-5.0) 12/04/16 05:02 Chloride 103.2 mmol/L (98-107) 12/04/16 05:02 Carbon Dioxide 23 mmol/L (22-30) 12/04/16 05:02 Anion Gap 17 mmol/L 12/04/16 05:02 BUN 12 mg/dL (7-17) 12/04/16 05:02 Creatinine 0.5 mg/dL (0.7-1.2) L 12/04/16 05:02 Estimated GFR > 60 ml/min 12/04/16 05:02 BUN/Creatinine Ratio 24.00 % 12/04/16 05:02 Glucose 155 mg/dL (65-100) H 12/04/16 05:02 Calcium 8.8 mg/dL (8.4-10.2) 12/04/16 05:02 Troponin T < 0.010 ng/mL (0.00-0.029) 12/03/16 06:46
[2016-12-04] MEDS ORDERED: SINGULAIR PO SCH (18:00)
[2016-12-04] MEDS: DEEP SEA NS SCH ×2 (18:18→22:50)
--- NOTE | 2016-12-04 20:20 | Event Note ---
Date: 12/04/[address] GAYTAN THANK YOU FOR ASKING US TO PARTICIPATE IN THE CARE OF THIS PATIENT. This is 51 year old , [place] female history of asthma came to the emergency room from work with wheezing, shortness of breath and nasal condition.Patient getting asthma attacks frequently. Patient said she is hospitalized three times from last 8 months. Patient denies cough. Complaining nasal congestion. Denies other medical problems. No history of smoking,alcohol or drug abuse. 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 Patient is . She has three children.Denies allergies to the medications.Patient has Angio CT of chest which is negative. Chest xray unremarkable.Patients Blood gases and CBC and CMP not remarkable except some elevation of glucose. IMMPRESSION; 1.ACUTE EXAGERBATION OF ASTHMA; 2.ALLERGIC RHINITIS; PLAN; 1. O2 2 LITRES VIA NASAL CANULA. 2. BROVANNA/bUDESONIDE AEROSOL TREATMENTS Q 12 HOURS. 3. ALBUTEROL INHALOR HFA 2 PUFFS PO Q6 HOURS PRN FOR WHEEZING. 4. CONTINUE I/v SOLUMEDRAL. 5. CONTINUE LEVAQUINE. 6. CONTINUE S/C LOVENOX. 7. CONTINUE PEPCID. 8. RECOMMEND ZYRETEC 10 MG PO QD PRN FOR NASAL CONGESTION. 9. RECOMMEND TO GET RAST TEST AND SERUM IGE.
[2016-12-04] MEDS: PROVENTIL IH SCH (21:22)
[2016-12-04] MEDS ORDERED: LOVENOX SUB-Q SCH (22:00)
[2016-12-05] MEDS: PERCOCET 5/325 PO PRN (00:17)
[2016-12-05] MEDS: PROVENTIL IH SCH ×3 (02:21→15:13)
[2016-12-05] MEDS ORDERED: ROCEPHIN/NS 1 GM/50 ML 1 GM/50 ML BAG IV ONE (02:41)
[2016-12-05] MEDS: D5NS 1,000 ML IV SCH (06:32)
--- NOTE | 2016-12-05 08:18 | Discharge Summary ---
Providers - Providers Date of Admission: 12/03/16 12:20 Attending physician: RADHA CAICEDO MD 12/03/16 23:16 Consult to Physician [CONS] Routine Consulting Provider: CR STACY Reason For Exam: Asthma Place consult to:: dr. rubi Notified:: answering service Phone number called:: Was contact made?: Yes If yes, spoke with:: sagar Time called:: 08:42 Primary care physician: WINCH STRIPPER Hospitalization Condition: Stable Hospital course: This is a 51-year-old Afro-Wallisian female presents to the emergency department , driving herself and from work, with complaint of shortness of breath, wheezing and a dry cough that she believes is an asthma attack. She has a history of severe persistent asthma with daily symptoms, chronic allergic rhinitis. She states that she takes Advair Diskus and Singulair,Claritin Flonase nebulizer and Ventolin rescue. She has been in the ER every month for the past year she's been hospitalized 4 times in the past year. Denies any history of intubation. 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 She was treated with IV steroids, IV antibiotics, long-acting beta agonist inhaled steroid and rescue nebulizer, she clinically improves, she'll need of oxygen. She was also given her home medications, and given resources for free clinic premedications and discounted medications. Discharge diagnosis severe persistent asthma with acute exacerbation Acute respiratory failure (she was noted to be using accessory muscles at the time of admission) Allergic rhinitis Disposition: TO HOME OR SELFCARE Time spent for discharge: 32 minutes Core Measure Documentation - Palliative Care Palliative Care/ Comfort Measures: Not Applicable - Core Measures Any of the following diagnoses?: none Exam - Constitutional Vitals: Temp Pulse Resp BP Pulse Ox 97.8 F 70 18 110/59 99 12/05/16 00:19 12/05/16 00:19 12/05/16 00:19 12/05/16 00:19 12/05/16 00:19 General appearance: Present: no acute distress, well-nourished - EENT Eyes: Present: PERRL ENT: hearing intact, clear oral mucosa - Neck Neck: Present: supple, normal ROM - Respiratory Respiratory effort: normal Respiratory: bilateral: CTA - Cardiovascular Heart Sounds: Present: S1 & S2. Absent: rub, click - Extremities Extremities: pulses symmetrical, No edema Peripheral Pulses: within normal limits - Abdominal General gastrointestinal: Present: soft, non-tender, non-distended, normal bowel sounds Female genitourinary: Present: normal - Integumentary Integumentary: Present: clear, warm, dry - Musculoskeletal Musculoskeletal: gait normal, strength equal bilaterally - Psychiatric Psychiatric: appropriate mood/affect, intact judgment & insight - Neurologic Neurologic: CNII-XII intact, moves all extremities Plan Follow up with: PRIMARY CAREMD [Primary Care Provider] - 3-5 Days REED RIVAS MD [Staff Physician] - 7 Days Prescriptions: ALBUTEROL NEB's [Proventil 0.083% NEBS] 2.5 mg IH QID PRN #90 dose PRN Reason: Wheezing Albuterol Sulfate [Ventolin HFA] 2 puff IH Q4H PRN #1 hfa.aer.ad PRN Reason: Shortness Of Breath Benzonatate [Tessalon Perles] 100 mg PO Q8HR PRN #30 capsule PRN Reason: Cough Fluticasone [Flonase] 2 dispenser INNOSTRIL BID #1 bottle Fluticasone/Salmeterol [Advair Diskus 500-50 mcg] 1 puff IH BID #1 disk.w.dev Montelukast [Singulair] 10 mg PO QPM #30 tablet Prednisone [predniSONE 10 mg (6-Day Pack, 21 Tabs)] 10 mg PO .TAPER #1 tab.ds.pk
[2016-12-05] MEDS: BROVANA NEBU IH SCH (08:20)
[2016-12-05] MEDS: PULMICORT IH SCH (08:20)
[2016-12-05] MEDS: LEVAQUIN 750MG/150ML 750 MG/150 ML BAG IV SCH (10:18)
[2016-12-05] MEDS: DEEP SEA NS SCH (10:19)
[2016-12-05] MEDS: FLONASE NS SCH (10:19)
[2016-12-05] MEDS: PEPCID PO SCH (10:25)
[2016-12-05 15:14] VITALS: BP 126/83
== END 2016-12-05 15:30 | disposition home or self-care (01) | DRG 189 ==
LOC: ED 06:15 → 3A 12:20
PROVIDERS: ADMIT Internal Medicine; ATTEND Internal Medicine
PROC: 4A033R1 Measurement of Arterial Saturation, Peripheral, Percutaneous Approach (ICD-10-PCS; principal; 2016-12-03)
PROC: 3E0234Z Introduction of Serum, Toxoid and Vaccine into Muscle, Percutaneous Approach (ICD-10-PCS; 2016-12-03)
DX: J96.00 Acute respiratory failure, unspecified whether with hypoxia or hypercapnia (principal); J45.51 Severe persistent asthma with (acute) exacerbation; Z98.51 Tubal ligation status; Z88.0 Allergy status to penicillin; Z88.1 Allergy status to other antibiotic agents; J30.9 Allergic rhinitis, unspecified; Z23 Encounter for immunization
CPT/HCPCS: 36415; 36600; 71010; 71275; 80048; 82803; 84484; 85007; 85025; 85379; 93005; 93010; 94640; 94644; 94760; 96365; 96375; J0696; J1644; J1956; J2930; J3475; J7042; Q9967

== ENCOUNTER 2016-12-26 15:03 | Emergency (ER) | payer SELFPAY ==
[2016-12-26] MEDS ORDERED: PROVENTIL IH ONE ×3 (15:38→17:38)
[2016-12-26] MEDS ORDERED: ATROVENT IH ONE ×2 (16:03→17:38)
[2016-12-26] MEDS ORDERED: MAGNESIUM SULFATE 2GM/50ML 2 GM/50 ML BAG IV ONE (16:04)
--- NOTE | 2016-12-26 16:13 | Emergency Department Report ---
HPI - General Chief Complaint: Adult Asthma Time Seen by Provider: 12/26/16 15:57 - HPI HPI: Room 23 The patient is a 51-year-old female presenting with a chief complaint of shortness of breath. The patient states her symptoms began 3 days ago with shortness of breath and wheezing consistent with asthma. The patient states she 's been taking her nebulizers today every 3 hours and using her inhaler in between has not helped. The patient admits to occasional cough that is slightly productive of clear sputum for approximately one week. Patient admits to sneezing and rhinorrhea. Patient denies any history of fever Location: Lungs Duration: [see above] Quality: Shortness of breath, asthma Severity: Moderate Modifying factors: [see above] Context: [see above] Mode of transportation: [not driving] ED Past Medical Hx - Past Medical History Hx Asthma: Yes - Surgical History Additional Surgical History: tubal ligation - Family History Family history: no significant - Social History Smoking Status: Never Smoker Substance Use Type: None (denies illicit drug use) - Medications Home Medications: Home Medications Medication Instructions Recorded Confirmed Last Taken Type Benzonatate [Tessalon Perles] 100 mg PO Q8HR PRN #30 capsule 12/05/16 12/26/16 12/26/16 Rx Fluticasone/Salmeterol [Advair 1 puff IH BID #1 disk.w.dev 12/05/16 12/26/16 Unknown Rx Diskus 500-50 mcg] Montelukast [Singulair] 10 mg PO QPM #30 tablet 12/05/16 12/26/16 12/26/16 Rx ALBUTEROL NEB's [Proventil 0.083% 2.5 mg IH QID PRN #90 dose 12/26/16 Unknown Rx NEBS] Albuterol Sulfate [Ventolin HFA] 2 puff IH Q4H PRN #1 hfa.aer.ad 12/26/16 Unknown Rx Fluticasone [Flonase] 2 dispenser IH BID 12/26/16 12/26/16 Unknown History Ipratropium [Atrovent] 0.5 mg IH Q6HRT #75 ml 12/26/16 Unknown Rx predniSONE [Deltasone] 60 mg PO QDAY #12 tab 12/26/16 Unknown Rx ED Review of Systems ROS: Stated complaint: ASTHMA/WHEEZING Other details as noted in HPI Comment: All other systems reviewed and negative Constitutional: denies: fever Eyes: denies: eye pain, eye discharge, vision change ENT: congestion Respiratory: cough, shortness of breath, wheezing Cardiovascular: denies: chest pain, palpitations Endocrine: no symptoms reported Gastrointestinal: denies: abdominal pain, nausea, diarrhea Genitourinary: denies: urgency, dysuria, discharge Musculoskeletal: denies: back pain, joint swelling, arthralgia Skin: denies: rash, lesions Neurological: denies: headache, weakness, paresthesias Psychiatric: as per HPI Hematological/Lymphatic: denies: easy bleeding, easy bruising Physical Exam - Physical Exam Vital Signs: Vital Signs 12/26/16 12/26/16 12/26/16 15:31 15:47 15:53 Temperature 98.7 F Pulse Rate 99 H 104 H Pulse Rate [ 100 H Bilateral Upper Lobe] Respiratory 20 24 Rate Respiratory 20 Rate [Bilateral Upper Lobe] Blood Pressure 124/87 O2 Sat by Pulse 92 91 Oximetry 12/26/16 16:01 Temperature Pulse Rate Pulse Rate [ 102 H Bilateral Upper Lobe] Respiratory Rate Respiratory 20 Rate [Bilateral Upper Lobe] Blood Pressure O2 Sat by Pulse Oximetry Physical Exam: GENERAL: The patient is well-developed well-nourished female lying on stretcher receiving nebulizer not appearing to be in acute distress. [] HEENT: Normocephalic. Atraumatic. Extraocular motions are intact. Patient has moist mucous membranes. NECK: Supple. Trachea midline CHEST/LUNGS: Diffuse wheezing. HEART/CARDIOVASCULAR: Regular. There is no tachycardia. There is no gallop rub or murmur. ABDOMEN: Abdomen is soft, nontender. Patient has normal bowel sounds. There is no abdominal distention. SKIN: There is no rash. There is no edema. There is no diaphoresis. NEURO: The patient is awake, alert, and oriented. The patient is cooperative. The patient has normal speech MUSCULOSKELETAL: There is no evidence of acute injury. ED Course Vital Signs 12/26/16 12/26/16 12/26/16 15:31 15:47 15:53 Temperature 98.7 F Pulse Rate 99 H 104 H Pulse Rate [ 100 H Bilateral Upper Lobe] Respiratory 20 24 Rate Respiratory 20 Rate [Bilateral Upper Lobe] Blood Pressure 124/87 O2 Sat by Pulse 92 91 Oximetry 12/26/16 16:01 Temperature Pulse Rate Pulse Rate [ 102 H Bilateral Upper Lobe] Respiratory Rate Respiratory 20 Rate [Bilateral Upper Lobe] Blood Pressure O2 Sat by Pulse Oximetry - Reevaluation(s) Reevaluation #1: 12/26/16 18:43 The patient states she feels better and is ready to go home. ED Medical Decision Making - Differential Diagnosis acute asthma exacerbation, influenza Critical care attestation.: If time is entered above; I have spent that time in minutes in the direct care of this critically ill patient, excluding procedure time. ED Disposition Clinical Impression: Asthma with acute exacerbation, SOB (shortness of breath) Disposition: TO HOME OR SELFCARE Is pt being admited?: No Does the pt Need Aspirin: No Condition: Stable Instructions: Asthma (ED) Additional Instructions: Return to the emergency department immediately should you develop worsening symptoms, fever, inability to tolerate food or liquid or any other concerns. Prescriptions: ALBUTEROL NEB's [Proventil 0.083% NEBS] 2.5 mg IH QID PRN #90 dose PRN Reason: Wheezing Albuterol Sulfate [Ventolin HFA] 2 puff IH Q4H PRN #1 hfa.aer.ad PRN Reason: Shortness Of Breath Ipratropium [Atrovent] 0.5 mg IH Q6HRT #75 ml predniSONE [Deltasone] 60 mg PO QDAY #12 tab Referrals: [facility] [Outside] - 3-5 Days REED RIVAS MD [Staff Physician] - 3-5 Days (Dr. Rivas is a loss prevention detective. Please follow up with him for further evaluation) Time of Disposition: 18:47
[2016-12-26] MEDS ORDERED: TYLENOL PO ONE (17:38)
[2016-12-26 18:51] VITALS: BP 144/80
== END 2016-12-26 19:06 | disposition home or self-care (01) ==
LOC: ED 15:03
DX: J45.901 Unspecified asthma with (acute) exacerbation (principal); R06.02 Shortness of breath; Z88.0 Allergy status to penicillin; Z88.1 Allergy status to other antibiotic agents
CPT/HCPCS: 87400; 94640; 96365; 96375; 99284; J2930; J3475

== ENCOUNTER 2017-01-28 10:28 | Emergency (ER) | payer SELFPAY ==
[2017-01-28 10:55] VITALS: BP 108/75
[2017-01-28] MEDS ORDERED: DUONEB *Not for PRN Use IH ONE ×2 (10:56→12:42)
--- NOTE | 2017-01-28 11:05 | Emergency Department Report ---
Entered by DEBI RODRIGUEZ, acting as scribe for ADONIS MEJIA NP. Chief Complaint: Adult Asthma Stated Complaint: ASTHMA Time Seen by Provider: 01/28/17 10:55 - HPI History of Present Illness: 51 y/o female presents with coughing secondary to asthma exacerbation that started a few days ago. Sx include wheezing that started yesterday but pt denies fever or chills. Pt notes using albuterol treatment earlier today. - ROS Review of Systems: +cough +wheezing -fever -chills - Exam Vital Signs: Vital Signs 01/28/17 10:51 Temperature 98.4 F Pulse Rate 89 Respiratory 20 Rate Blood Pressure 108/75 O2 Sat by Pulse 96 Oximetry Physical Exam: inspiratory and expiratory wheezing a and o x4 steady gait pt looks well, non-toxic MSE screening note: Focused history and physical exam performed. Due to findings the following was ordered: med ED Disposition for MSE Condition: Stable This documentation as recorded by the scribe,DEBI RODRIGUEZ,accurately reflects the service I personally performed and the decisions made by ROBERTO dejesus TRACY M , LINK TRAINER MAINTENANCE MAN.
--- NOTE | 2017-01-28 13:03 | XRay Report ---
Chest 2 views: Compared to 12/03/16. History: Cough and wheezing. Findings: Normal cardiomediastinal silhouette. Trachea is midline. No consolidation, pneumothorax or pleural effusion. Impression: No acute cardiopulmonary findings.
[2017-01-28] MEDS ORDERED: PROVENTIL IH ONE ×2 (14:09→14:49)
[2017-01-28] MEDS ORDERED: MAGNESIUM SULFATE 2GM/50ML 2 GM/50 ML BAG IV ONE (14:49)
[2017-01-28 15:47] LABS: Basophils % (Auto) 1.1 % (0.0-1.8); Eosinophils % (Auto) 11.1 % (0.0-4.3); Hematocrit 43.1 % (30.3-42.9); Hemoglobin 13.9 gm/dl (10.1-14.3); Mean Corpuscular HGB Conc 32 % (30-34); Mean Corpuscular Hemoglobin 30 pg (28-32); Mean Corpuscular Volume 94 fl (79-97); Platelet Count 239 K/mm3 (140-440); Red Blood Count 4.58 M/mm3 (3.65-5.03); Red Cell Distribution Width 15.7 % (13.2-15.2)
[2017-01-28] MEDS ORDERED: DUONEB *Not for PRN Use IH SCH (16:00)
[2017-01-28 16:07] LABS: Alanine Aminotransferase 20 units/L (7-56); Albumin 4.1 g/dL (3.9-5); Albumin/Globulin Ratio 1.4 %; Alkaline Phosphatase 62 units/L (35-129); Anion Gap 19 mmol/L; BUN/Creatinine Ratio 11.66; Blood Urea Nitrogen 7 mg/dL (7-17); Calcium 9.3 mg/dL (8.4-10.2); Carbon Dioxide 26 mmol/L (22-30); Chloride 99.8 mmol/L (98-107); Glucose 113 mg/dL (65-100); Potassium 3.9 mmol/L (3.6-5.0); Sodium 141 mmol/L (137-145)
--- NOTE | 2017-01-28 18:02 | Emergency Department Report ---
ED Asthma HPI - General Chief Complaint: Adult Asthma Stated Complaint: ASTHMA Time Seen by Provider: 01/28/17 10:55 Source: patient Mode of arrival: Ambulatory Limitations: No Limitations - History of Present Illness Initial Comments: Patient is a 51 y/o female with h/o asthma who presents due to cough nasal congestion x 3 days and wheezing x 2 days. Patient denies any fever, chills. Patient denies any sorethroat. Patient states that the last time she was admitted was 2 months ago. She states that she has been intubated a very long time ago. Complaint: wheezing Onset/Timin -: days(s) Asthma History: history of prior ED visit, previously intubated Severity: moderate Context: recent URI Associated Symptoms: dry cough, other (nasal congestion) Treatments Prior to Arrival: inhaled bronchodilator, inhaled steroid - Related Data Current Asthma Therapy: inhaled bronchodilator, inhaled steroid, recent oral steroid Home Medications Medication Instructions Recorded Confirmed Last Taken Fluticasone [Flonase] 2 dispenser IH BID 12/26/16 12/26/16 Unknown Previous Rx's Medication Instructions Recorded Last Taken Type Fluticasone/Salmeterol [Advair 1 puff IH BID #1 disk.w.dev 12/05/16 Unknown Rx Diskus 500-50 mcg] Albuterol Sulfate [Ventolin HFA] 2 puff IH Q4H PRN #1 hfa.aer.ad 12/26/16 Unknown Rx Ipratropium [Atrovent] 0.5 mg IH Q6HRT #75 ml 12/26/16 Unknown Rx predniSONE [Deltasone] 60 mg PO QDAY #12 tab 12/26/16 Unknown Rx ALBUTEROL NEB's [Proventil 0.083% 2.5 mg IH QID PRN #90 dose 01/28/17 Unknown Rx NEBS] Azithromycin [Zithromax Z-NICHOLAS] 250 mg PO DAILY #6 tab 01/28/17 Unknown Rx Benzonatate [Tessalon Perles] 100 mg PO Q8HR PRN #30 capsule 01/28/17 Unknown Rx Fluticasone [Flonase] 1 spray NS QDAY #1 bottle 01/28/17 Unknown Rx Montelukast [Singulair] 10 mg PO QPM #30 tablet 01/28/17 Unknown Rx predniSONE [Deltasone] 10 mg PO QDAY #21 tab 01/28/17 Unknown Rx Allergies Allergy/AdvReac Type Severity Reaction Status Date / Time erythromycin base Allergy Vomiting Verified 12/26/16 15:36 Penicillins Allergy Vomiting Verified 12/26/16 15:36 ED Review of Systems ROS: Stated complaint: ASTHMA Other details as noted in HPI Comment: All other systems reviewed and negative Constitutional: no symptoms reported. denies: chills, fever Respiratory: no symptoms reported, cough, shortness of breath, wheezing. denies : SOB with exertion, SOB at rest, stridor Cardiovascular: denies: chest pain, palpitations, dyspnea on exertion, orthopnea , edema Gastrointestinal: denies: abdominal pain, nausea, vomiting Skin: denies: rash Neurological: denies: headache ED Past Medical Hx - Past Medical History Previous Medical History?: Yes Hx Asthma: Yes - Surgical History Past Surgical History?: Yes Additional Surgical History: tubal ligation - Social History Smoking Status: Never Smoker Substance Use Type: Prescribed - Medications Home Medications: Home Medications Medication Instructions Recorded Confirmed Last Taken Type Fluticasone/Salmeterol [Advair 1 puff IH BID #1 disk.w.dev 12/05/16 12/26/16 Unknown Rx Diskus 500-50 mcg] Albuterol Sulfate [Ventolin HFA] 2 puff IH Q4H PRN #1 hfa.aer.ad 12/26/16 Unknown Rx Fluticasone [Flonase] 2 dispenser IH BID 12/26/16 12/26/16 Unknown History Ipratropium [Atrovent] 0.5 mg IH Q6HRT #75 ml 12/26/16 Unknown Rx predniSONE [Deltasone] 60 mg PO QDAY #12 tab 12/26/16 Unknown Rx ALBUTEROL NEB's [Proventil 0.083% 2.5 mg IH QID PRN #90 dose 01/28/17 Unknown Rx NEBS] Azithromycin [Zithromax Z-NICHOLAS] 250 mg PO DAILY #6 tab 01/28/17 Unknown Rx Benzonatate [Tessalon Perles] 100 mg PO Q8HR PRN #30 capsule 01/28/17 Unknown Rx Fluticasone [Flonase] 1 spray NS QDAY #1 bottle 01/28/17 Unknown Rx Montelukast [Singulair] 10 mg PO QPM #30 tablet 01/28/17 Unknown Rx predniSONE [Deltasone] 10 mg PO QDAY #21 tab 01/28/17 Unknown Rx ED Physical Exam - General Limitations: No Limitations General appearance: alert, in no apparent distress - Head Head exam: Present: atraumatic, normocephalic - Eye Eye exam: Present: normal appearance, PERRL, EOMI - Neck Neck exam: Present: normal inspection - Respiratory Respiratory exam: Present: wheezes - Cardiovascular Cardiovascular Exam: Present: regular rate, normal rhythm, normal heart sounds - Extremities Exam Extremities exam: Present: normal inspection, full ROM - Neurological Exam Neurological exam: Present: alert, oriented X3, normal gait - Psychiatric Psychiatric exam: Present: normal affect, normal mood - Skin Skin exam: Present: warm, dry, intact ED Course Vital Signs 01/28/17 01/28/17 01/28/17 10:51 11:53 14:25 Temperature 98.4 F Pulse Rate 89 Pulse Rate [ 80 81 Bilateral] Pulse Rate [ 87 78 Throughout] Respiratory 20 Rate Respiratory 18 18 Rate [Bilateral ] Respiratory 18 16 Rate [ Throughout] Blood Pressure 108/75 O2 Sat by Pulse 96 Oximetry 01/28/17 01/28/17 16:27 17:37 Temperature Pulse Rate Pulse Rate [ 100 H Bilateral] Pulse Rate [ 98 H Throughout] Respiratory 22 Rate Respiratory 18 Rate [Bilateral ] Respiratory 20 Rate [ Throughout] Blood Pressure O2 Sat by Pulse 97 Oximetry ED Medical Decision Making - Lab Data Result diagrams: 01/28/17 15:25 01/28/17 15:25 Lab Results 01/28/17 01/28/17 Range/Units 15:25 15:25 WBC 5.0 (4.5-11.0) K/mm3 RBC 4.58 (3.65-5.03) M/mm3 Hgb 13.9 (10.1-14.3) gm/dl Hct 43.1 H (30.3-42.9) % MCV 94 (79-97) fl MCH 30 (28-32) pg MCHC 32 (30-34) % RDW 15.7 H (13.2-15.2) % Plt Count 239 (140-440) K/mm3 Lymph % (Auto) 14.1 (13.4-35.0) % Bailey % (Auto) 2.6 (0.0-7.3) % Eos % (Auto) 11.1 H (0.0-4.3) % Baso % (Auto) 1.1 (0.0-1.8) % Lymph # 0.7 L (1.2-5.4) K/mm3 Bailey # 0.1 (0.0-0.8) K/mm3 Eos # 0.6 H (0.0-0.4) K/mm3 Baso # 0.1 (0.0-0.1) K/mm3 Seg Neutrophils % 71.1 H (40.0-70.0) % Seg Neutrophils # 3.6 (1.8-7.7) K/mm3 Sodium 141 (137-145) mmol/L Potassium 3.9 (3.6-5.0) mmol/L Chloride 99.8 (98-107) mmol/L Carbon Dioxide 26 (22-30) mmol/L Anion Gap 19 mmol/L BUN 7 (7-17) mg/dL Creatinine 0.6 L (0.7-1.2) mg/dL Estimated GFR > 60 ml/min BUN/Creatinine Ratio 11.66 % Glucose 113 H (65-100) mg/dL Calcium 9.3 (8.4-10.2) mg/dL Magnesium 1.60 L (1.7-2.3) mg/dL Total Bilirubin 0.50 (0.1-1.2) mg/dL AST 24 (5-40) units/L ALT 20 (7-56) units/L Alkaline Phosphatase 62 (35-129) units/L Total Protein 7.0 (6.3-8.2) g/dL Albumin 4.1 (3.9-5) g/dL Albumin/Globulin Ratio 1.4 % - Radiology Data normal chest x-ray - Medical Decision Making patient was in NAD, patient had wheezing in bilateral lung mendoza. patient was given 3 duoneb treatment in the ER. patient was still wheezing after the duoneb treatments. Patient was given Magnesium sulfate IVPB in the ER. Patient was also given duoneb continuous treatment in the ER. After the continuous duoneb treatment patient's wheezing was significantly improved and patient stated that he felt better Patient was discharged with a prescription for prednisone tapering dose, azithromycin, tessalon Perles, flonase, singulair, albuterol inhaler. - Differential Diagnosis asthma exacerbation, URI, pneumonia Critical care attestation.: If time is entered above; I have spent that time in minutes in the direct care of this critically ill patient, excluding procedure time. ED Disposition Clinical Impression: Asthma exacerbation, Wheezing Disposition: TO HOME OR SELFCARE Is pt being admited?: No Does the pt Need Aspirin: No Condition: Good Instructions: Asthma (ED) Additional Instructions: Take azithromycin as prescribed, take prednisone 60 mg on day 1, 50 mg day 2, 40 mg day 3, 30 mg day 4, 20 mg day 5, 10 mg day 1. Take Tessalon Perles as prescribed. Take albuterol inhaler every 4 hours as needed for wheezing. Follow-up at [facility] or your primary care provider for any complications. Prescriptions: ALBUTEROL NEB's [Proventil 0.083% NEBS] 2.5 mg IH QID PRN #90 dose PRN Reason: Wheezing Azithromycin [Zithromax Z-NICHOLAS] 250 mg PO DAILY #6 tab Benzonatate [Tessalon Perles] 100 mg PO Q8HR PRN #30 capsule PRN Reason: Cough Fluticasone [Flonase] 1 spray NS QDAY #1 bottle Montelukast [Singulair] 10 mg PO QPM #30 tablet predniSONE [Deltasone] 10 mg PO QDAY #21 tab Referrals: PRIMARY CARE,MD [Primary Care Provider] - 3-5 Days [facility] [Outside] - 3-5 Days Time of Disposition: 18:04
== END 2017-01-28 18:38 | disposition home or self-care (01) ==
LOC: ED 10:28
DX: J45.901 Unspecified asthma with (acute) exacerbation (principal); Z88.1 Allergy status to other antibiotic agents; Z88.0 Allergy status to penicillin
CPT/HCPCS: 36415; 71020; 80053; 83735; 85025; 94640; 96365; 96372; 99284; J2930; J3475

== ENCOUNTER 2017-02-19 12:49 | Emergency (ER) | payer SELFPAY ==
[2017-02-19] MEDS ORDERED: DUONEB *Not for PRN Use IH ONE ×2 (12:59→18:05)
[2017-02-19] MEDS ORDERED: DELTASONE PO ONE (18:04)
[2017-02-19] MEDS ORDERED: MAGNESIUM SULFATE 2GM/50ML 2 GM/50 ML BAG IV ONE (18:05)
[2017-02-20 00:04] VITALS: BP 128/86
== END 2017-02-19 20:06 | disposition left against medical advice (07) ==
LOC: ED 12:49
DX: J45.909 Unspecified asthma, uncomplicated (principal); Z88.0 Allergy status to penicillin; Z88.1 Allergy status to other antibiotic agents
CPT/HCPCS: 94640; 96365; 99283; J3475; J7512

== ENCOUNTER 2017-02-24 02:00 | Inpatient (IN) | payer OTHER ==
[2017-02-24] MEDS ORDERED: ATROVENT IH ONE (02:23)
[2017-02-24] MEDS ORDERED: PROVENTIL IH ONE ×2 (02:23→04:09)
[2017-02-24] MEDS ORDERED: MAGNESIUM SULFATE 2GM/50ML 2 GM/50 ML BAG IV ONE ×2 (03:49→03:54)
--- NOTE | 2017-02-24 05:08 | Emergency Department Report ---
ED General Adult HPI - General Chief complaint: Dyspnea/Respdistress Stated complaint: SOPHY Time Seen by Provider: 02/24/17 05:05 Source: patient Mode of arrival: Ambulatory Limitations: No Limitations - History of Present Illness Initial comments: Patient is a 52-year-old female past medical history of COPD and asthma who presents with shortness of breath. Patient states that she had shortness of breath that occurred since work. Patient's shortness of breath is severe. It is worse with exertion nothing makes it better. Patient states that she's tried her albuterol inhaler and her triggers or smoke and weather change. She came in here 3 days ago with similar complaints. And was sent home. However today she states it's worse. Patient has not been intubated for her asthma. Patient ascending 98% on 2 L nasal cannula. Severity scale (0 -10): 10 - Related Data Home Medications Medication Instructions Recorded Confirmed Last Taken Fluticasone [Flonase] 2 dispenser IH BID 12/26/16 02/24/17 Unknown Previous Rx's Medication Instructions Recorded Last Taken Type Albuterol Sulfate [Ventolin HFA] 2 puff IH Q4H PRN #1 hfa.aer.ad 12/26/16 Unknown Rx Ipratropium [Atrovent] 0.5 mg IH Q6HRT #75 ml 12/26/16 Unknown Rx predniSONE [Deltasone] 60 mg PO QDAY #12 tab 12/26/16 Unknown Rx ALBUTEROL NEB's [Proventil 0.083% 2.5 mg IH QID PRN #90 dose 01/28/17 Unknown Rx NEBS] Azithromycin [Zithromax Z-NICHOLAS] 250 mg PO DAILY #6 tab 01/28/17 Unknown Rx Benzonatate [Tessalon Perles] 100 mg PO Q8HR PRN #30 capsule 01/28/17 Unknown Rx Fluticasone [Flonase] 1 spray NS QDAY #1 bottle 01/28/17 Unknown Rx predniSONE [Deltasone] 10 mg PO QDAY #21 tab 01/28/17 Unknown Rx Albuterol Sulfate [Ventolin HFA] 2 puff IH Q4H PRN #1 hfa.aer.ad 02/19/17 Unknown Rx Fluticasone/Salmeterol [Advair 1 puff IH BID #1 disk.w.dev 02/19/17 Unknown Rx Diskus 500-50 mcg] Montelukast [Singulair] 10 mg PO QPM #30 tablet 02/19/17 Unknown Rx predniSONE [Deltasone] 40 mg PO QDAY #10 tab 02/19/17 Unknown Rx Allergies Allergy/AdvReac Type Severity Reaction Status Date / Time erythromycin base Allergy Vomiting Verified 12/26/16 15:36 Penicillins Allergy Vomiting Verified 12/26/16 15:36 ED Review of Systems ROS: Stated complaint: SOPHY Other details as noted in HPI Constitutional: denies: chills, fever Eyes: denies: eye pain, eye discharge, vision change ENT: denies: ear pain, throat pain Respiratory: cough, shortness of breath. denies: wheezing Cardiovascular: denies: chest pain, palpitations Endocrine: no symptoms reported Gastrointestinal: denies: abdominal pain, nausea, diarrhea Genitourinary: denies: urgency, dysuria, discharge Musculoskeletal: denies: back pain, joint swelling, arthralgia Skin: denies: rash, lesions Neurological: denies: headache, weakness, paresthesias Psychiatric: denies: anxiety, depression Hematological/Lymphatic: denies: easy bleeding, easy bruising ED Past Medical Hx - Past Medical History Previous Medical History?: Yes Hx Asthma: Yes - Surgical History Past Surgical History?: Yes Additional Surgical History: tubal ligation - Social History Smoking Status: Never Smoker - Medications Home Medications: Home Medications Medication Instructions Recorded Confirmed Last Taken Type Albuterol Sulfate [Ventolin HFA] 2 puff IH Q4H PRN #1 hfa.aer.ad 12/26/16 Unknown Rx Fluticasone [Flonase] 2 dispenser IH BID 12/26/16 02/24/17 Unknown History Ipratropium [Atrovent] 0.5 mg IH Q6HRT #75 ml 12/26/16 02/24/17 Unknown Rx predniSONE [Deltasone] 60 mg PO QDAY #12 tab 12/26/16 02/24/17 Unknown Rx ALBUTEROL NEB's [Proventil 0.083% 2.5 mg IH QID PRN #90 dose 01/28/17 02/24/17 Unknown Rx NEBS] Azithromycin [Zithromax Z-NICHOLAS] 250 mg PO DAILY #6 tab 01/28/17 02/24/17 Unknown Rx Benzonatate [Tessalon Perles] 100 mg PO Q8HR PRN #30 capsule 01/28/17 02/24/17 Unknown Rx Fluticasone [Flonase] 1 spray NS QDAY #1 bottle 01/28/17 02/24/17 Unknown Rx predniSONE [Deltasone] 10 mg PO QDAY #21 tab 01/28/17 02/24/17 Unknown Rx Albuterol Sulfate [Ventolin HFA] 2 puff IH Q4H PRN #1 hfa.aer.ad 02/19/17 Unknown Rx Fluticasone/Salmeterol [Advair 1 puff IH BID #1 disk.w.dev 02/19/17 02/24/17 Unknown Rx Diskus 500-50 mcg] Montelukast [Singulair] 10 mg PO QPM #30 tablet 02/19/17 02/24/17 Unknown Rx predniSONE [Deltasone] 40 mg PO QDAY #10 tab 02/19/17 02/24/17 Unknown Rx ED Physical Exam - General Limitations: No Limitations General appearance: alert, in no apparent distress - Head Head exam: Present: atraumatic, normocephalic - Eye Eye exam: Present: normal appearance - ENT ENT exam: Present: mucous membranes moist - Neck Neck exam: Present: normal inspection - Respiratory Respiratory exam: Present: wheezes, accessory muscle use. Absent: normal lung sounds bilaterally - Cardiovascular Cardiovascular Exam: Present: regular rate, normal rhythm. Absent: systolic murmur, diastolic murmur, rubs, gallop - GI/Abdominal GI/Abdominal exam: Present: soft, normal bowel sounds - Extremities Exam Extremities exam: Present: normal inspection - Back Exam Back exam: Present: normal inspection - Neurological Exam Neurological exam: Present: alert, oriented X3 - Psychiatric Psychiatric exam: Present: normal affect, normal mood - Skin Skin exam: Present: warm, dry, intact, normal color. Absent: rash ED Course Vital Signs 02/24/17 02/24/17 02/24/17 02:07 04:10 04:53 Temperature 98.6 F Pulse Rate 94 H 107 H Respiratory 22 Rate Blood Pressure 129/80 [Right] O2 Sat by Pulse 94 99 Oximetry 02/24/17 05:27 Temperature Pulse Rate 90 Respiratory Rate Blood Pressure [Right] O2 Sat by Pulse 99 Oximetry - Reevaluation(s) Reevaluation #1: 02/24/17 05:31 Patient is feeling better after breathing treatment I will give patient IV steroids and I will admit patient. 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 Low voltage no change when compared to old EKG. - Radiology Data Radiology results: image reviewed Chest x-ray: Shows no acute cardiopulmonary disease - Medical Decision Making Chief medical diagnosis: Asthma exacerbation Differential medical diagnosis: COPD, pulmonary fibrosis, pneumothorax, pneumonia I will get CBC, CMP, chest x-ray, breathing treatment, IV Solu-Medrol Patient is still wheezing after 2 to use breathing treatments I will admit patient to the hospitalist service. Critical care attestation.: If time is entered above; I have spent that time in minutes in the direct care of this critically ill patient, excluding procedure time. ED Disposition Clinical Impression: SOB (shortness of breath), Asthma attack Disposition: DC OP ADMIT IP TO THIS HOSP Is pt being admited?: No Does the pt Need Aspirin: No Condition: Stable Referrals: PRIMARY CARE, [Primary Care Provider] - 3-5 Days
[2017-02-24 05:36] LABS: Hematocrit 44.8 % (30.3-42.9); Hemoglobin 14.6 gm/dl (10.1-14.3); Mean Corpuscular HGB Conc 33 % (30-34); Mean Corpuscular Hemoglobin 30 pg (28-32); Mean Corpuscular Volume 94 fl (79-97); Platelet Count 235 K/mm3 (140-440); Red Blood Count 4.79 M/mm3 (3.65-5.03); Red Cell Distribution Width 15.4 % (13.2-15.2); White Blood Count 7.7 K/mm3 (4.5-11.0)
[2017-02-24] MEDS ORDERED: ZOFRAN IV PRN (05:47)
[2017-02-24] MEDS ORDERED: DULCOLAX PR PRN (05:47)
[2017-02-24] MEDS ORDERED: MILK OF MAGNESIA PO PRN (05:47)
[2017-02-24] MEDS: TYLENOL PO PRN ×3 (05:50→16:42)
--- NOTE | 2017-02-24 05:56 | History and Physical Report ---
History of Present Illness Date of examination: 02/24/17 History of present illness: 52-year-old male with a history of asthma comes emergency room with complaints of shortness of breath. She was seen in the emergency room on the of this month. Her symptoms and was given a steroid taper. She has been using steroids and nebulizer treatments at home without much improvement in her symptoms. Also complaining of cough productive of white phlegm, no fever or chills Review Of Systems: Constitutional: no weight loss Ears, eyes, nose, mouth and throat: no nasal congestion, no nasal discharge, no sinus pressure, blurry vision, diplopia Neck: No neck pain or rigidity. Cardiovascular: chest pain, orthopnea, palpitations Respiratory:+shortness of breath, cough Gastrointestinal: abdominal pain, hematochezia Genitourinary : no dysuria, frequency , hematuria Musculoskeletal: no muscle ache Integumentary: no rash, no pruritis Neurological: no parathesias, focal weakness Endocrine: no cold or heat intolerance, no polyuria or polydipsia Hematologic/Lymphatic: no easy bruising, no easy bleeding, no gland swelling Allergic/Immunologic: no urticaria, no angioedema PAST MEDICAL HISTORY:asthma PAST SURGICAL HISTORY: Tubal ligation FAMILY HISTORY: Hypertension SOCIAL HISTORY: Denies focal complex rapid ventricular Medications and Allergies Allergies Allergy/AdvReac Type Severity Reaction Status Date / Time erythromycin base Allergy Vomiting Verified 12/26/16 15:36 Penicillins Allergy Vomiting Verified 12/26/16 15:36 Home Medications Medication Instructions Recorded Confirmed Last Taken Type Albuterol Sulfate [Ventolin HFA] 2 puff IH Q4H PRN #1 hfa.aer.ad 12/26/16 Unknown Rx Fluticasone [Flonase] 2 dispenser IH BID 12/26/16 02/24/17 Unknown History Ipratropium [Atrovent] 0.5 mg IH Q6HRT #75 ml 12/26/16 02/24/17 Unknown Rx predniSONE [Deltasone] 60 mg PO QDAY #12 tab 12/26/16 02/24/17 Unknown Rx ALBUTEROL NEB's [Proventil 0.083% 2.5 mg IH QID PRN #90 dose 01/28/17 02/24/17 Unknown Rx NEBS] Azithromycin [Zithromax Z-NICHOLAS] 250 mg PO DAILY #6 tab 01/28/17 02/24/17 Unknown Rx Benzonatate [Tessalon Perles] 100 mg PO Q8HR PRN #30 capsule 01/28/17 02/24/17 Unknown Rx Fluticasone [Flonase] 1 spray NS QDAY #1 bottle 01/28/17 02/24/17 Unknown Rx predniSONE [Deltasone] 10 mg PO QDAY #21 tab 01/28/17 02/24/17 Unknown Rx Albuterol Sulfate [Ventolin HFA] 2 puff IH Q4H PRN #1 hfa.aer.ad 02/19/17 Unknown Rx Fluticasone/Salmeterol [Advair 1 puff IH BID #1 disk.w.dev 02/19/17 02/24/17 Unknown Rx Diskus 500-50 mcg] Montelukast [Singulair] 10 mg PO QPM #30 tablet 02/19/17 02/24/17 Unknown Rx predniSONE [Deltasone] 40 mg PO QDAY #10 tab 02/19/17 02/24/17 Unknown Rx Active Meds: Active Medications Acetaminophen (Tylenol) 650 mg PO Q4H PRN PRN Reason: Pain MILD(1-3)/Fever >100.5/CLAIRE Albuterol/Ipratropium (Duoneb *Not For Prn Use*) 1 ampul IH Q6HRT HERBERTH Bisacodyl (Dulcolax) 10 mg RI QDAY PRN PRN Reason: Constipation unrelieved by MOM Enoxaparin Sodium (Lovenox) 30 mg SUB-Q QDAY HERBERTH Magnesium Hydroxide (Milk Of Magnesia) 30 ml PO Q4H PRN PRN Reason: Constipation Methylprednisolone Sodium Succinate (Solu-Medrol) 125 mg IV Q6H HERBERTH Ondansetron HCl (Zofran) 4 mg IV Q8H PRN PRN Reason: N/V unrelieved by Reglan Exam - Physical Exam Narrative exam: Gen. appearance: Patient lying in bed in no acute distress HEENT: Normocephalic/atraumatic, pupils equal round reactive to light, extra alkaline movement intact, no scleral icterus, no JVD or thyromegaly or nodule, neck is supple, mucous membrane moist, no erythema or exudate Heart: S1-S2, regular rate and rhythm Lungs: Wheezing, coarse breath sounds bilateral breathing comfortable Abdomen: Positive bowel sounds, nontender, nondistended, no organomegaly Extremities: No edema, cyanosis, clubbing Neuro:: Oriented 3 , cranial nerves II-12 intact, speech, motor intact Skin: No rash, nodules, warm dry - Constitutional Vitals: Temp Pulse Resp BP Pulse Ox 98.6 F 90 22 129/80 99 02/24/17 02:07 02/24/17 05:27 02/24/17 02:07 02/24/17 02:07 02/24/17 05:27 Results - Labs CBC & Chem 7: 02/24/17 05:20 Labs: Abnormal lab results 02/24/17 Range/Units 05:20 Hgb 14.6 H (10.1-14.3) gm/dl Hct 44.8 H (30.3-42.9) % RDW 15.4 H (13.2-15.2) % - Imaging and Cardiology EKG: image reviewed Assessment and Plan Assessment Asthma exacerbation Plan Admit to medicine Start high-dose IV steroids, nebulizer treatment, check d-dimer DVT prophylaxis
[2017-02-24 06:22] LABS: Alanine Aminotransferase 37 units/L (7-56); Albumin/Globulin Ratio 1.3 %; Alkaline Phosphatase 72 units/L (35-129); Anion Gap 15 mmol/L; BUN/Creatinine Ratio 13.33; Blood Urea Nitrogen 8 mg/dL (7-17); Calcium 8.9 mg/dL (8.4-10.2); Carbon Dioxide 28 mmol/L (22-30); Chloride 101.6 mmol/L (98-107); Glucose 121 mg/dL (65-100); Potassium 3.7 mmol/L (3.6-5.0); Sodium 141 mmol/L (137-145); Total Protein 7.2 g/dL (6.3-8.2)
--- NOTE | 2017-02-24 07:12 | XRay Report ---
ROUTINE CHEST, TWO VIEWS: HISTORY: Shortness of breath. The trachea, heart, mediastinal contour, lung mendoza and bony thorax are unremarkable. IMPRESSION: Unremarkable chest x-ray. No significant change since 01/28/17.
[2017-02-24 07:36] LABS: Blastocytes % (Manual) 0 %
[2017-02-24 07:37] LABS: Diff Status Complete; Ovalocytes Few; Polychromasia Rare
--- NOTE | 2017-02-24 07:44 | Admit Criteria Form ---
Admission Criteria Documentation: ASTHMA Clinical Indications for Admission to Inpatient Care ([place]/check or initial the applicable condition/criteria) Admission is indicated for ANY ONE of the following (1)(2)(3)(4): [ ]I. Ventilatory support required [ ]II. Peak expiratory flow rate less than 25% of predicted or personal best before treatment [ ]III. Peak expiratory flow rate less than 40% of predicted or personal best after treatment [ ]IV. Peak expiratory flow rate between 40% and 60% of predicted or personal best after treatment, and ANY ONE of the following: [ ]a) History of asthma requiring intubation [ ]b) Hospitalization for asthma within the past year [ ]c) Current or recent use of oral corticosteroids for asthma [ ]d) Use of more than 1 canister of inhaled beta2-agonist in past month [ ]e) Exacerbation due to allergic reaction to food [ ]f) Inadequate access to medical care or medications [ ]g) Adherence to post-discharge asthma regimen cannot be assured (eg, psychosocial problems, poor adherence, no available follow-up care) [ ]V. Hypoxemia [ ]. PaCO2 elevation from baseline by 2 mm Hg (0.27 kPa) or greater [ ]VII. Cyanosis [ ]VIII. Silent chest (absent or markedly diminished breath sounds) [ ]IX. Cardiac dysrhythmia (eg, Bradycardia) [ ]X. Hemodynamic instability [ ]XI. Altered mental status [ ]XII. Radiographic evidence of complication requiring inpatient treatment (eg, pneumonia, pneumothorax) [X ]XIII. Inpatient admission required[A] rather than observation care because of ANY ONE of the following: [X ]a) Respiratory finding that is severe or persistent (eg, dyspnea, Tachypnea, accessory muscle use) [ ]b) Other condition, treatment, or monitoring requiring inpatient admission Extended stay beyond goal length of stay may be needed for (1)(25)(27): [ ]a) Severe respiratory distress or respiratory failure (22)(23)(28)(29) [ ]b) Secondary causes and complications (24) [ ]c) Status asthmaticus [ ]d) Chronic obstructive asthma (eg, asthma-COPD overlap syndrome) (30) [ ]e) Older patients (65 years or older) (28) [ ]f) Slow resolution [ ]g) Clinically significant exacerbation of comorbidities (e.g., congestive heart failure,atrial fibrillation) The original [facility] [employer] content created by [facility] has been revised. The portions of the content which have been revised are identified through the use of italic text or in bold, and [facility] has neither reviewed nor approved the modified material. All other unmodified content is copyright [facility] Please see references footnoted in the original [facility] edition 2017 Admission Criteria Met: Yes
[2017-02-24] MEDS: DUONEB *Not for PRN Use IH SCH ×3 (09:01→20:42)
[2017-02-24] MEDS ORDERED: LOVENOX SUB-Q SCH (10:00)
[2017-02-24] MEDS: LOVENOX SUB-Q SCH ×2 (10:04→10:08)
[2017-02-24] MEDS ORDERED: Fluarix Quad 2017-2018(36 MOS+) IM ONE (12:00)
[2017-02-24] MEDS ORDERED: PROVENTIL IH PRN ×2 (12:01→13:39)
--- NOTE | 2017-02-24 14:06 | Event Note ---
Date: 02/24/17 She was seen and evaluated at the bedside, patient has shortness of breath, she has wheezing all over the chest. She is on IV Solu-Medrol, breathing treatment , oxygen support. Continue with the current management.
[2017-02-24] MEDS: PULMICORT IH SCH (20:42)
[2017-02-24] MEDS: FLONASE NS SCH (22:17)
[2017-02-25] MEDS: DUONEB *Not for PRN Use IH SCH ×4 (01:20→19:49)
[2017-02-25 05:24] LABS: Anion Gap 17 mmol/L; BUN/Creatinine Ratio 23.33; Blood Urea Nitrogen 14 mg/dL (7-17); Calcium 9.2 mg/dL (8.4-10.2); Carbon Dioxide 25 mmol/L (22-30); Chloride 103.2 mmol/L (98-107); Glucose 170 mg/dL (65-100); Potassium 4.6 mmol/L (3.6-5.0); Sodium 141 mmol/L (137-145)
[2017-02-25 05:37] LABS: Hematocrit 39.5 % (30.3-42.9); Hemoglobin 13.1 gm/dl (10.1-14.3); Mean Corpuscular HGB Conc 33 % (30-34); Mean Corpuscular Hemoglobin 31 pg (28-32); Mean Corpuscular Volume 94 fl (79-97); Platelet Count 215 K/mm3 (140-440); Red Blood Count 4.23 M/mm3 (3.65-5.03); Red Cell Distribution Width 15.6 % (13.2-15.2); White Blood Count 9.6 K/mm3 (4.5-11.0)
[2017-02-25 06:49] LABS: Blastocytes % (Manual) 0 %
[2017-02-25 06:50] LABS: Anisocytosis Few; Basophils % (Manual) 0 % (0.0-1.8); Diff Status Complete; Eosinophils % (Manual) 0 % (0.0-4.3); Hypochromasia 1+; Large Platelets Rare; Ovalocytes Few; Polychromasia Rare
[2017-02-25] MEDS: PULMICORT IH SCH ×2 (07:21→19:49)
[2017-02-25] MEDS: FLONASE NS SCH (09:32)
[2017-02-25] MEDS: LOVENOX SUB-Q SCH (09:33)
[2017-02-25] MEDS: TYLENOL PO PRN ×2 (11:02→21:38)
--- NOTE | 2017-02-25 11:09 | Progress Note ---
Assessment and Plan Assessment and plan: Acute asthma exacerbation. Continue IV steroids, nebulizer treatments. D- dimer negative. History Interval history: Patient states she feels better. Hospitalist Physical - Constitutional Vitals: Temp Pulse Resp BP Pulse Ox 97.7 F 120 H 20 127/80 95 02/25/17 07:26 02/25/17 07:31 02/25/17 10:00 02/25/17 07:26 02/25/17 07:26 General appearance: Present: no acute distress, well-nourished - EENT Eyes: Present: PERRL, EOM intact ENT: hearing intact, clear oral mucosa, dentition normal - Neck Neck: Present: supple, normal ROM - Respiratory Respiratory effort: normal Respiratory: bilateral: diminished, wheezing - Cardiovascular Rhythm: regular Heart Sounds: Present: S1 & S2. Absent: gallop, rub - Extremities Extremities: no ischemia, No edema, Full ROM - Abdominal General gastrointestinal: soft, non-tender, non-distended, normal bowel sounds - Integumentary Integumentary: Present: clear, warm, dry - Neurologic Neurologic: CNII-XII intact, moves all extremities Results - Labs CBC & Chem 7: 02/25/17 04:17 02/25/17 04:17 Labs: Laboratory Last Values WBC 9.6 K/mm3 (4.5-11.0) 02/25/17 04:17 RBC 4.23 M/mm3 (3.65-5.03) 02/25/17 04:17 Hgb 13.1 gm/dl (10.1-14.3) 02/25/17 04:17 Hct 39.5 % (30.3-42.9) 02/25/17 04:17 MCV 94 fl (79-97) 02/25/17 04:17 MCH 31 pg (28-32) 02/25/17 04:17 MCHC 33 % (30-34) 02/25/17 04:17 RDW 15.6 % (13.2-15.2) H 02/25/17 04:17 Plt Count 215 K/mm3 (140-440) 02/25/17 04:17 Eos % (Auto) Second Crusher 02/24/17 05:20 Add Manual Diff Complete 02/25/17 04:17 Total Counted 100 02/25/17 04:17 Seg Neutrophils % Second Crusher 02/25/17 04:17 Seg Neuts % (Manual) 82.0 % (40.0-70.0) H 02/25/17 04:17 Band Neutrophils % 9.0 % 02/25/17 04:17 Lymphocytes % (Manual) 8.0 % (13.4-35.0) L 02/25/17 04:17 Reactive Lymphs % (Man) 0 % 02/25/17 04:17 Monocytes % (Manual) 1.0 % (0.0-7.3) 02/25/17 04:17 Eosinophils % (Manual) 0 % (0.0-4.3) 02/25/17 04:17 Basophils % (Manual) 0 % (0.0-1.8) 02/25/17 04:17 Metamyelocytes % 0 % 02/25/17 04:17 Myelocytes % 0 % 02/25/17 04:17 Promyelocytes % 0 % 02/25/17 04:17 Blast Cells % 0 % 02/25/17 04:17 Nucleated RBC % Not Reportable 02/25/17 04:17 Seg Neutrophils # Man 7.9 K/mm3 (1.8-7.7) H 02/25/17 04:17 Band Neutrophils # 0.9 K/mm3 02/25/17 04:17 Lymphocytes # (Manual) 0.8 K/mm3 (1.2-5.4) L 02/25/17 04:17 Abs React Lymphs (Man) 0.0 K/mm3 02/25/17 04:17 Monocytes # (Manual) 0.1 K/mm3 (0.0-0.8) 02/25/17 04:17 Eosinophils # (Manual) 0.0 K/mm3 (0.0-0.4) 02/25/17 04:17 Basophils # (Manual) 0.0 K/mm3 (0.0-0.1) 02/25/17 04:17 Metamyelocytes # 0.0 K/mm3 02/25/17 04:17 Myelocytes # 0.0 K/mm3 02/25/17 04:17 Promyelocytes # 0.0 K/mm3 02/25/17 04:17 Blast Cells # 0.0 K/mm3 02/25/17 04:17 WBC Morphology Not Reportable 02/25/17 04:17 Hypersegmented Neuts Not Reportable 02/25/17 04:17 Hyposegmented Neuts Not Reportable 02/25/17 04:17 Hypogranular Neuts Not Reportable 02/25/17 04:17 Smudge Cells Not Reportable 02/25/17 04:17 Toxic Granulation Not Reportable 02/25/17 04:17 Toxic Vacuolation Not Reportable 02/25/17 04:17 Dohle Bodies Not Reportable 02/25/17 04:17 Pelger-Huet Anomaly Not Reportable 02/25/17 04:17 Saul Rods Not Reportable 02/25/17 04:17 Platelet Estimate Appears normal 02/25/17 04:17 Clumped Platelets Not Reportable 02/25/17 04:17 Plt Clumps, EDTA Not Reportable 02/25/17 04:17 Large Platelets Rare 02/25/17 04:17 Giant Platelets Not Reportable 02/25/17 04:17 Platelet Satelliting Not Reportable 02/25/17 04:17 Plt Morphology Comment Not Reportable 02/25/17 04:17 RBC Morphology Not Reportable 02/25/17 04:17 Dimorphic RBCs Not Reportable 02/25/17 04:17 Polychromasia Rare 02/25/17 04:17 Hypochromasia 1+ 02/25/17 04:17 Poikilocytosis Not Reportable 02/25/17 04:17 Anisocytosis Few 02/25/17 04:17 Microcytosis Not Reportable 02/25/17 04:17 Macrocytosis Not Reportable 02/25/17 04:17 Spherocytes Not Reportable 02/25/17 04:17 Pappenheimer Bodies Not Reportable 02/25/17 04:17 Sickle Cells Not Reportable 02/25/17 04:17 Target Cells Not Reportable 02/25/17 04:17 Tear Drop Cells Not Reportable 02/25/17 04:17 Ovalocytes Few 02/25/17 04:17 Helmet Cells Not Reportable 02/25/17 04:17 [place] Bodies Not Reportable 02/25/17 04:17 [place] Rings Not Reportable 02/25/17 04:17 [place] Cells Not Reportable 02/25/17 04:17 Bite Cells Not Reportable 02/25/17 04:17 Crenated Cell Not Reportable 02/25/17 04:17 Elliptocytes Not Reportable 02/25/17 04:17 Acanthocytes (Spur) Not Reportable 02/25/17 04:17 Rouleaux Not Reportable 02/25/17 04:17 Hemoglobin C Crystals Not Reportable 02/25/17 04:17 Schistocytes Not Reportable 02/25/17 04:17 Malaria parasites Not Reportable 02/25/17 04:17 Jesús Bodies Not Reportable 02/25/17 04:17 Hem Pathologist Commnt No 02/25/17 04:17 D-Dimer 216.42 ng/mlDDU (0-234) 02/24/17 05:57 Sodium 141 mmol/L (137-145) 02/25/17 04:17 Potassium 4.6 mmol/L (3.6-5.0) D 02/25/17 04:17 Chloride 103.2 mmol/L (98-107) 02/25/17 04:17 Carbon Dioxide 25 mmol/L (22-30) 02/25/17 04:17 Anion Gap 17 mmol/L 02/25/17 04:17 BUN 14 mg/dL (7-17) 02/25/17 04:17 Creatinine 0.6 mg/dL (0.7-1.2) L 02/25/17 04:17 Estimated GFR > 60 ml/min 02/25/17 04:17 BUN/Creatinine Ratio 23.33 % 02/25/17 04:17 Glucose 170 mg/dL (65-100) H 02/25/17 04:17 Calcium 9.2 mg/dL (8.4-10.2) 02/25/17 04:17 Total Bilirubin 0.50 mg/dL (0.1-1.2) 02/24/17 05:20 AST 42 units/L (5-40) H 02/24/17 05:20 ALT 37 units/L (7-56) 02/24/17 05:20 Alkaline Phosphatase 72 units/L (35-129) 02/24/17 05:20 Total Protein 7.2 g/dL (6.3-8.2) 02/24/17 05:20 Albumin 4.0 g/dL (3.9-5) 02/24/17 05:20 Albumin/Globulin Ratio 1.3 % 02/24/17 05:20
[2017-02-26] MEDS: DUONEB *Not for PRN Use IH SCH ×5 (02:47→19:43)
[2017-02-26] MEDS: PULMICORT IH SCH ×2 (07:16→19:43)
--- NOTE | 2017-02-26 09:28 | Progress Note ---
Assessment and Plan Assessment and plan: Acute asthma exacerbation. Continue IV steroids, nebulizer treatments. D- dimer negative. History Interval history: Patient states she feels better. Hospitalist Physical - Constitutional Vitals: Temp Pulse Resp BP Pulse Ox 98.8 F 98 H 18 121/72 97 02/26/17 07:00 02/26/17 07:25 02/26/17 07:25 02/26/17 07:00 02/26/17 07:18 General appearance: Present: no acute distress, well-nourished - EENT Eyes: Present: PERRL, EOM intact ENT: hearing intact, clear oral mucosa, dentition normal - Neck Neck: Present: supple, normal ROM - Respiratory Respiratory effort: normal Respiratory: bilateral: wheezing - Cardiovascular Rhythm: regular Heart Sounds: Present: S1 & S2. Absent: gallop, rub - Extremities Extremities: no ischemia, No edema, Full ROM - Abdominal General gastrointestinal: soft, non-tender, non-distended, normal bowel sounds - Integumentary Integumentary: Present: clear, warm, dry - Neurologic Neurologic: CNII-XII intact, moves all extremities Results - Labs CBC & Chem 7: 02/25/17 04:17 02/25/17 04:17 Labs: Laboratory Last Values WBC 9.6 K/mm3 (4.5-11.0) 02/25/17 04:17 RBC 4.23 M/mm3 (3.65-5.03) 02/25/17 04:17 Hgb 13.1 gm/dl (10.1-14.3) 02/25/17 04:17 Hct 39.5 % (30.3-42.9) 02/25/17 04:17 MCV 94 fl (79-97) 02/25/17 04:17 MCH 31 pg (28-32) 02/25/17 04:17 MCHC 33 % (30-34) 02/25/17 04:17 RDW 15.6 % (13.2-15.2) H 02/25/17 04:17 Plt Count 215 K/mm3 (140-440) 02/25/17 04:17 Eos % (Auto) Radiographer Cardiac Catheterization 02/24/17 05:20 Add Manual Diff Complete 02/25/17 04:17 Total Counted 100 02/25/17 04:17 Seg Neutrophils % Radiographer Cardiac Catheterization 02/25/17 04:17 Seg Neuts % (Manual) 82.0 % (40.0-70.0) H 02/25/17 04:17 Band Neutrophils % 9.0 % 02/25/17 04:17 Lymphocytes % (Manual) 8.0 % (13.4-35.0) L 02/25/17 04:17 Reactive Lymphs % (Man) 0 % 02/25/17 04:17 Monocytes % (Manual) 1.0 % (0.0-7.3) 02/25/17 04:17 Eosinophils % (Manual) 0 % (0.0-4.3) 02/25/17 04:17 Basophils % (Manual) 0 % (0.0-1.8) 02/25/17 04:17 Metamyelocytes % 0 % 02/25/17 04:17 Myelocytes % 0 % 02/25/17 04:17 Promyelocytes % 0 % 02/25/17 04:17 Blast Cells % 0 % 02/25/17 04:17 Nucleated RBC % Not Reportable 02/25/17 04:17 Seg Neutrophils # Man 7.9 K/mm3 (1.8-7.7) H 02/25/17 04:17 Band Neutrophils # 0.9 K/mm3 02/25/17 04:17 Lymphocytes # (Manual) 0.8 K/mm3 (1.2-5.4) L 02/25/17 04:17 Abs React Lymphs (Man) 0.0 K/mm3 02/25/17 04:17 Monocytes # (Manual) 0.1 K/mm3 (0.0-0.8) 02/25/17 04:17 Eosinophils # (Manual) 0.0 K/mm3 (0.0-0.4) 02/25/17 04:17 Basophils # (Manual) 0.0 K/mm3 (0.0-0.1) 02/25/17 04:17 Metamyelocytes # 0.0 K/mm3 02/25/17 04:17 Myelocytes # 0.0 K/mm3 02/25/17 04:17 Promyelocytes # 0.0 K/mm3 02/25/17 04:17 Blast Cells # 0.0 K/mm3 02/25/17 04:17 WBC Morphology Not Reportable 02/25/17 04:17 Hypersegmented Neuts Not Reportable 02/25/17 04:17 Hyposegmented Neuts Not Reportable 02/25/17 04:17 Hypogranular Neuts Not Reportable 02/25/17 04:17 Smudge Cells Not Reportable 02/25/17 04:17 Toxic Granulation Not Reportable 02/25/17 04:17 Toxic Vacuolation Not Reportable 02/25/17 04:17 Dohle Bodies Not Reportable 02/25/17 04:17 Pelger-Huet Anomaly Not Reportable 02/25/17 04:17 Saul Rods Not Reportable 02/25/17 04:17 Platelet Estimate Appears normal 02/25/17 04:17 Clumped Platelets Not Reportable 02/25/17 04:17 Plt Clumps, EDTA Not Reportable 02/25/17 04:17 Large Platelets Rare 02/25/17 04:17 Giant Platelets Not Reportable 02/25/17 04:17 Platelet Satelliting Not Reportable 02/25/17 04:17 Plt Morphology Comment Not Reportable 02/25/17 04:17 RBC Morphology Not Reportable 02/25/17 04:17 Dimorphic RBCs Not Reportable 02/25/17 04:17 Polychromasia Rare 02/25/17 04:17 Hypochromasia 1+ 02/25/17 04:17 Poikilocytosis Not Reportable 02/25/17 04:17 Anisocytosis Few 02/25/17 04:17 Microcytosis Not Reportable 02/25/17 04:17 Macrocytosis Not Reportable 02/25/17 04:17 Spherocytes Not Reportable 02/25/17 04:17 Pappenheimer Bodies Not Reportable 02/25/17 04:17 Sickle Cells Not Reportable 02/25/17 04:17 Target Cells Not Reportable 02/25/17 04:17 Tear Drop Cells Not Reportable 02/25/17 04:17 Ovalocytes Few 02/25/17 04:17 Helmet Cells Not Reportable 02/25/17 04:17 [place] Bodies Not Reportable 02/25/17 04:17 [place] Rings Not Reportable 02/25/17 04:17 [place] Cells Not Reportable 02/25/17 04:17 Bite Cells Not Reportable 02/25/17 04:17 Crenated Cell Not Reportable 02/25/17 04:17 Elliptocytes Not Reportable 02/25/17 04:17 Acanthocytes (Spur) Not Reportable 02/25/17 04:17 Rouleaux Not Reportable 02/25/17 04:17 Hemoglobin C Crystals Not Reportable 02/25/17 04:17 Schistocytes Not Reportable 02/25/17 04:17 Malaria parasites Not Reportable 02/25/17 04:17 Jesús Bodies Not Reportable 02/25/17 04:17 Hem Pathologist Commnt No 02/25/17 04:17 D-Dimer 216.42 ng/mlDDU (0-234) 02/24/17 05:57 Sodium 141 mmol/L (137-145) 02/25/17 04:17 Potassium 4.6 mmol/L (3.6-5.0) D 02/25/17 04:17 Chloride 103.2 mmol/L (98-107) 02/25/17 04:17 Carbon Dioxide 25 mmol/L (22-30) 02/25/17 04:17 Anion Gap 17 mmol/L 02/25/17 04:17 BUN 14 mg/dL (7-17) 02/25/17 04:17 Creatinine 0.6 mg/dL (0.7-1.2) L 02/25/17 04:17 Estimated GFR > 60 ml/min 02/25/17 04:17 BUN/Creatinine Ratio 23.33 % 02/25/17 04:17 Glucose 170 mg/dL (65-100) H 02/25/17 04:17 Calcium 9.2 mg/dL (8.4-10.2) 02/25/17 04:17 Total Bilirubin 0.50 mg/dL (0.1-1.2) 02/24/17 05:20 AST 42 units/L (5-40) H 02/24/17 05:20 ALT 37 units/L (7-56) 02/24/17 05:20 Alkaline Phosphatase 72 units/L (35-129) 02/24/17 05:20 Total Protein 7.2 g/dL (6.3-8.2) 02/24/17 05:20 Albumin 4.0 g/dL (3.9-5) 02/24/17 05:20 Albumin/Globulin Ratio 1.3 % 02/24/17 05:20
[2017-02-26] MEDS ORDERED: TORADOL IV ONE (10:00)
[2017-02-26] MEDS: FLONASE NS SCH (10:41)
[2017-02-26] MEDS: LOVENOX SUB-Q SCH (10:49)
--- NOTE | 2017-02-26 12:01 | Consultation ---
History of Present Illness Consult date: 02/26/17 Reason for consult: dyspnea, other (asthma exacerbation) History of present illness: Called to evaluate case of a 52-year-old female admitted to the hospital with shortness of breath, wheezing and asthma exacerbation. The patient had been seen previously with similar problems about 2 weeks ago and sent back home. She reportedly presented to the ER with increased levels dyspnea associated with wheezing on physical examination. She reports some nasal congestion prior to admission. She denies any fever, chills or active expectoration. No sinus pressure. No recent reflux symptoms. States that her asthma has been flaring up frequently since she moved from [place]. States that which she was in [place], she will see physician a monthly basis for her asthma treatment. Unfortunately, this has not been possible after she moved. She had visit the ER 4 times already. Also prior history of near fatal asthma a episode with intubation 1. Her son smokes. No pets at home. She denies any additional irritant contact. No history of multiple exposure. Initial evaluation of the records shows normal WBC with unremarkable admission chest x-ray. Medications and Allergies Allergies Allergy/AdvReac Type Severity Reaction Status Date / Time erythromycin base Allergy Vomiting Verified 12/26/16 15:36 Penicillins Allergy Vomiting Verified 12/26/16 15:36 Home Medications Medication Instructions Recorded Confirmed Last Taken Type Albuterol Sulfate [Ventolin HFA] 2 puff IH Q4H PRN #1 hfa.aer.ad 12/26/16 Unknown Rx Fluticasone [Flonase] 2 dispenser IH BID 12/26/16 02/24/17 Unknown History Ipratropium [Atrovent] 0.5 mg IH Q6HRT #75 ml 12/26/16 02/24/17 Unknown Rx predniSONE [Deltasone] 60 mg PO QDAY #12 tab 12/26/16 02/24/17 Unknown Rx ALBUTEROL NEB's [Proventil 0.083% 2.5 mg IH QID PRN #90 dose 01/28/17 02/24/17 Unknown Rx NEBS] Azithromycin [Zithromax Z-NICHOLAS] 250 mg PO DAILY #6 tab 01/28/17 02/24/17 Unknown Rx Benzonatate [Tessalon Perles] 100 mg PO Q8HR PRN #30 capsule 01/28/17 02/24/17 Unknown Rx Fluticasone [Flonase] 1 spray NS QDAY #1 bottle 01/28/17 02/24/17 Unknown Rx predniSONE [Deltasone] 10 mg PO QDAY #21 tab 01/28/17 02/24/17 Unknown Rx Albuterol Sulfate [Ventolin HFA] 2 puff IH Q4H PRN #1 hfa.aer.ad 02/19/17 Unknown Rx Fluticasone/Salmeterol [Advair 1 puff IH BID #1 disk.w.dev 02/19/17 02/24/17 Unknown Rx Diskus 500-50 mcg] Montelukast [Singulair] 10 mg PO QPM #30 tablet 02/19/17 02/24/17 Unknown Rx predniSONE [Deltasone] 40 mg PO QDAY #10 tab 02/19/17 02/24/17 Unknown Rx Active Meds: Active Medications Acetaminophen (Tylenol) 650 mg PO Q4H PRN PRN Reason: Pain MILD(1-3)/Fever >100.5/CLAIRE Last Admin: 02/25/17 21:38 Dose: 650 mg Albuterol (Proventil) 2.5 mg IH Q4HRT PRN PRN Reason: Shortness Of Breath Last Admin: 02/24/17 16:54 Dose: 2.5 mg Albuterol/Ipratropium (Duoneb *Not For Prn Use*) 1 ampul IH Q4HRT [facility] Bisacodyl (Dulcolax) 10 mg PA QDAY PRN PRN Reason: Constipation unrelieved by MOM Budesonide (Pulmicort) 0.5 mg IH Q12HRT [facility] Last Admin: 02/26/17 07:16 Dose: 0.5 mg Enoxaparin Sodium (Lovenox) 40 mg SUB-Q QDAY@1000 HERBER[place] Last Admin: 02/26/17 10:49 Dose: Not Given Fluticasone Propionate (Flonase) 100 mcg NS QDAY [facility] Last Admin: 02/26/17 10:41 Dose: 100 mcg Magnesium Hydroxide (Milk Of Magnesia) 30 ml PO Q4H PRN PRN Reason: Constipation Methylprednisolone Sodium Succinate (Solu-Medrol) 80 mg IV Q8HR [facility] Ondansetron HCl (Zofran) 4 mg IV Q8H PRN PRN Reason: N/V unrelieved by Reglan Review of Systems Ears, nose, mouth and throat: nasal congestion, nasal discharge, no sinus pressure, no sinus pain, no epistaxis, no hoarseness, no sore throat Respiratory: shortness of breath, dyspnea on exertion, wheezing Gastrointestinal: no abdominal pain, no nausea, no vomiting, no diarrhea, no constipation, no hematemesis, no heartburn, no indigestion, no belching Musculoskeletal: no neck stiffness, no neck pain, no shooting arm pain, no arm numbness/tingling Integumentary: no rash, no pruritis, no redness Neurological: no head injury, no transient paralysis, no paralysis, no weakness Allergic/Immunologic: allergic rhinitis, wheezing, no urticaria Physical Examination Vital signs: Vital Signs Temp Pulse Resp BP Pulse Ox 98.6 F 94 H 22 129/80 94 02/24/17 02:07 02/24/17 02:07 02/24/17 02:07 02/24/17 02:07 02/24/17 02:07 General appearance: no acute distress, alert Eyes: non-icteric ENT: oropharynx moist Neck: supple, no lymphadenopathy, no JVD Effort: normal Ascultation: Bilateral: wheezes Percussion: Bilateral: not dull Cardiovascular: regular rate and rhythm Gastrointestinal: normoactive bowel sounds, non-distended Integumentary: normal Extremities: no cyanosis, no edema Musculoskeletal: no deformities normal mental status, non-focal exam mood appropriate, affect normal Results - Laboratory Findings CBC and BMP: 02/25/17 04:17 02/25/17 04:17 PT/INR, D-dimer D-Dimer 216.42 ng/mlDDU (0-234) 02/24/17 05:57 Abnormal lab findings: Abnormal Labs 02/25/17 02/25/17 04:17 04:17 RDW 15.6 H Seg Neuts % (Manual) 82.0 H Lymphocytes % (Manual) 8.0 L Seg Neutrophils # Man 7.9 H Lymphocytes # (Manual) 0.8 L Creatinine 0.6 L Glucose 170 H - Diagnostic Findings Chest x-ray: report reviewed, image reviewed Assessment and Plan Asthma exacerbation episode. History of near fatal asthma Allergic rhinitis Recommendations Continue albuterol/ipratropium nebulizations every 4 hours Continue IV steroids and can be tapered down to prednisone 40 mg by mouth once the patient is more comfortable Singular 10 mg by mouth daily Nasal steroids DVT prophylaxis Discussed irritant exposure with the patient detail Needs outpatient monitoring including peak flow and PFT reassessment
[2017-02-27] MEDS: DUONEB *Not for PRN Use IH SCH ×4 (00:29→13:28)
[2017-02-27] MEDS: TYLENOL PO PRN (05:15)
[2017-02-27 08:55] VITALS: BP 148/90
[2017-02-27] MEDS: PULMICORT IH SCH (09:29)
--- NOTE | 2017-02-27 09:32 | Discharge Summary ---
Providers - Providers Date of Admission: 02/24/17 05:47 Date of discharge: 02/27/17 Attending physician: MIRTA MEZA 02/25/17 13:50 Consult to Physician [CONS] Routine Consulting Provider: RACHEL MCCANN Reason For Exam: Pulmonary consult, Shortness of breath and wheeze Place consult to:: Dr. Mccann Notified:: 02/25/17 Phone number called:: [phone] Was contact made?: Yes If yes, spoke with:: Wilma Time called:: 13:55 Primary care physician: BALL WINDER Hospitalization Reason for admission: asthma exac Condition: Stable Hospital course: 52-year-old male with a history of asthma who presented to the emergency room with complaints of shortness of breath. She was seen in the emergency room on the of this month. She was treated with a prescription for a steroid taper and discharged. She had been using steroids and nebulizer treatments at home without much improvement in her symptoms. Therefore, patient was admitted to the hospital for failed outpatient treatment. Patient was admitted for acute asthma exacerbation. Patient received IV steroids, bronchodilator and nebulizer treatment. Patient has significant improvement throughout hospitalization. Patient returned to her baseline respiratory status. Patient will be discharged home. Dedicated discharge time 31 minutes. Disposition: [id number] TO HOME OR SELFCARE Time spent for discharge: 31 - Discharge Diagnoses (1) Asthma attack Status: Acute (2) Acute bronchitis Status: Acute Qualifiers: Bronchitis organism: B (3) Acute respiratory failure with hypoxemia Status: Acute Core Measure Documentation - Palliative Care Palliative Care/ Comfort Measures: Not Applicable - Core Measures Any of the following diagnoses?: none Exam - Constitutional Vitals: Temp Pulse Resp BP Pulse Ox 98.1 F 86 20 148/90 91 02/27/17 08:11 02/27/17 08:11 02/27/17 08:11 02/27/17 08:11 02/27/17 08:11 General appearance: Present: no acute distress, well-nourished - EENT Eyes: Present: PERRL ENT: hearing intact, clear oral mucosa - Neck Neck: Present: supple, normal ROM - Respiratory Respiratory effort: normal Respiratory: bilateral: CTA - Cardiovascular Heart Sounds: Present: S1 & S2. Absent: rub, click - Extremities Extremities: pulses symmetrical, No edema Peripheral Pulses: within normal limits - Abdominal General gastrointestinal: Present: soft, non-tender, non-distended, normal bowel sounds Female genitourinary: Present: normal - Integumentary Integumentary: Present: clear, warm, dry - Musculoskeletal Musculoskeletal: gait normal, strength equal bilaterally - Psychiatric Psychiatric: appropriate mood/affect, intact judgment & insight - Neurologic Neurologic: CNII-XII intact, moves all extremities Plan Activity: no restrictions Weight Bearing Status: Full Weight Bearing Diet: regular Follow up with: TOSHIA ANGEL MD [Primary Care Provider] - 3-5 Days ERROL PEREZ MD [Staff Physician] - 7 Days Prescriptions: ALBUTEROL NEB's [Proventil 0.083% NEBS] 2.5 mg IH Q4HRT PRN #30 nebu PRN Reason: Shortness Of Breath Azithromycin [Zithromax Z-NICHOLAS] 250 mg PO DAILY #6 tab Benzonatate [Tessalon Perles] 100 mg PO Q8HR PRN #30 capsule PRN Reason: Cough Budesonide [Pulmicort Respules] 0.5 mg IH Q12HRT #60 nebu Fluticasone [Flonase] 100 mcg NS QDAY #30 bottle Ipratropium/Albuterol Sulfate [DUONEB *Not for PRN Use*] 1 ampul IH Q4HRT #30 ampul.neb Montelukast [Singulair] 10 mg PO QPM #30 tablet predniSONE [Deltasone] 10 mg PO QDAY #21 tab
[2017-02-27] MEDS: FLONASE NS SCH (09:46)
[2017-02-27] MEDS: LOVENOX SUB-Q SCH (09:47)
== END 2017-02-27 13:00 | disposition home or self-care (01) | DRG 189 ==
LOC: ED 02:00 → 3A 05:47
PROVIDERS: ADMIT Internal Medicine; ATTEND Hospitalist
PROC: 3E0234Z Introduction of Serum, Toxoid and Vaccine into Muscle, Percutaneous Approach (ICD-10-PCS; principal; 2017-02-24)
DX: J96.01 Acute respiratory failure with hypoxia (principal); J45.901 Unspecified asthma with (acute) exacerbation; J44.0 Chronic obstructive pulmonary disease with (acute) lower respiratory infection; J20.9 Acute bronchitis, unspecified; J30.9 Allergic rhinitis, unspecified; Z98.51 Tubal ligation status; Z82.49 Family history of ischemic heart disease and other diseases of the circulatory system; Z88.0 Allergy status to penicillin; Z23 Encounter for immunization
CPT/HCPCS: 36415; 71020; 80048; 80053; 85007; 85025; 85379; 90686; 93005; 93010; 94640; 94760; J1650; J1885; J2930; J3475

== ENCOUNTER 2017-06-02 09:53 | Emergency (ER) | payer OTHER ==
[2017-06-02 10:17] VITALS: BP 102/71
[2017-06-02] MEDS ORDERED: DUONEB *Not for PRN Use IH ONE ×2 (10:22→10:51)
--- NOTE | 2017-06-02 10:32 | Emergency Department Report ---
Chief Complaint: Adult Asthma Stated Complaint: ASTHMA Time Seen by Provider: 06/02/17 10:22 - HPI History of Present Illness: 52-year-old female history of asthma with previous admissions presents today with elevated respiratory rate wheezes throughout started this a.m. She had several treatments at home was not getting better came to the ED feeling worsening shortness of breath. Patient thinks she has come down some type of cold" denies fever chills no wt loss or hemoptysis no cp no calf pain or swelling. Positive cough with occasional intermittent clear sputum. Patient states she is compliant with her medication regimen denies alcohol or tobacco. - ROS Review of Systems: complete ros o/w neg - Exam Vital Signs: Vital Signs 06/02/17 10:13 Temperature 98.5 F Pulse Rate 111 H Respiratory 32 H Rate Blood Pressure 102/71 O2 Sat by Pulse 95 Oximetry Physical Exam: Patient is alert and oriented 3 moderate respiratory distress positive retractions afebrile alert and oriented 3 , end exp wheezes in all lung mendoza. speaks in short phrases., good cr, supple neck, no rash. MSE screening note: Focused history and physical exam performed. Due to findings the following was ordered: Patient will be sent to Main ED for further evaluation of respiratory distress in an asthmatic, laboratory studies chest x-ray Solu-Medrol and DuoNeb bronchodilator all ordered and pending patient transferred to Main ED for further evaluation and disposition. ED Disposition for MSE Condition: Stable Referrals: PRIMARY CARE, [Primary Care Provider] - 3-5 Days
[2017-06-02] MEDS ORDERED: MAGNESIUM SULFATE 2GM/50ML 2 GM/50 ML BAG IV ONE (10:52)
[2017-06-02 10:58] LABS: Alanine Aminotransferase 16 units/L (7-56); Albumin 3.8 g/dL (3.9-5); Albumin/Globulin Ratio 1.4 %; Alkaline Phosphatase 53 units/L (35-129); Anion Gap 17 mmol/L; BUN/Creatinine Ratio 23; Blood Urea Nitrogen 14 mg/dL (7-17); Calcium 8.5 mg/dL (8.4-10.2); Carbon Dioxide 24 mmol/L (22-30); Chloride 104.4 mmol/L (98-107); Glucose 98 mg/dL (65-100); Potassium 3.7 mmol/L (3.6-5.0); Sodium 142 mmol/L (137-145); Total Protein 6.5 g/dL (6.3-8.2)
--- NOTE | 2017-06-02 11:00 | XRay Report ---
ROUTINE CHEST, TWO VIEWS: Wheezing, asthma. PA and lateral views demonstrate the heart and mediastinal contour to be of normal size and shape. The lungs are clear and fully expanded and the soft tissues and bony structures are normal. IMPRESSION: Normal study.
[2017-06-02 11:02] LABS: Hematocrit 40.7 % (30.3-42.9); Hemoglobin 13.5 gm/dl (10.1-14.3); Mean Corpuscular HGB Conc 33 % (30-34); Mean Corpuscular Hemoglobin 31 pg (28-32); Mean Corpuscular Volume 94 fl (79-97); Platelet Count 213 K/mm3 (140-440); Red Blood Count 4.32 M/mm3 (3.65-5.03); Red Cell Distribution Width 15.3 % (13.2-15.2); White Blood Count 4.5 K/mm3 (4.5-11.0)
[2017-06-02 11:38] LABS: Blastocytes % (Manual) 0 %
[2017-06-02 11:39] LABS: Anisocytosis 1+; Diff Status Complete; Ovalocytes 1+
--- NOTE | 2017-06-02 14:48 | Emergency Department Report ---
ED General Adult HPI - General Chief complaint: Adult Asthma Stated complaint: ASTHMA Time Seen by Provider: 06/02/17 10:22 Source: patient Mode of arrival: Ambulatory Limitations: No Limitations - History of Present Illness Initial comments: Patient reports exacerbation of her asthma. She does take Advair and has home nebs. She states that she sees several nebs at home and she is still wheezing. She's had an occasional cough but no chest pain no leg pain no swelling. She has no history of congestive heart failure or venous thromboembolism. She has had a prior admission for asthma but not recently. She reports no productive cough. -: Gradual, hour(s) Associated Symptoms: denies other symptoms, cough. denies: chest pain, diaphoresis, fever/chills, nausea/vomiting, syncope, weakness - Related Data Home Medications Medication Instructions Recorded Confirmed Last Taken Fluticasone [Flonase] 2 dispenser IH BID 12/26/16 02/24/17 Unknown Previous Rx's Medication Instructions Recorded Last Taken Type Albuterol Sulfate [Ventolin HFA] 2 puff IH Q4H PRN #1 hfa.aer.ad 12/26/16 Unknown Rx Ipratropium [Atrovent NEB] 0.5 mg IH Q6HRT #75 ml 12/26/16 Unknown Rx ALBUTEROL NEB's [Proventil 0.083% 2.5 mg IH QID PRN #90 dose 01/28/17 Unknown Rx NEBS] Fluticasone [Flonase] 1 spray NS QDAY #1 bottle 01/28/17 Unknown Rx Albuterol Sulfate [Ventolin HFA] 2 puff IH Q4H PRN #1 hfa.aer.ad 02/19/17 Unknown Rx Fluticasone/Salmeterol [Advair 1 puff IH BID #1 disk.w.dev 02/19/17 Unknown Rx Diskus 500-50 mcg] ALBUTEROL NEB's [Proventil 0.083% 2.5 mg IH Q4HRT PRN #30 nebu 02/27/17 Unknown Rx NEBS] Azithromycin [Zithromax Z-NICHOLAS] 250 mg PO DAILY #6 tab 02/27/17 Unknown Rx Benzonatate [Tessalon Perles] 100 mg PO Q8HR PRN #30 capsule 02/27/17 Unknown Rx Budesonide [Pulmicort Respules] 0.5 mg IH Q12HRT #60 nebu 02/27/17 Unknown Rx Fluticasone [Flonase] 100 mcg NS QDAY #30 bottle 02/27/17 Unknown Rx Ipratropium/Albuterol Sulfate 1 ampul IH Q4HRT #30 ampul.neb 02/27/17 Unknown Rx [DUONEB *Not for PRN Use*] Montelukast [Singulair] 10 mg PO QPM #30 tablet 02/27/17 Unknown Rx predniSONE [Deltasone] 10 mg PO QDAY #21 tab 02/27/17 Unknown Rx Albuterol Sulfate [Ventolin HFA] 2 puff IH Q4H PRN #1 hfa.aer.ad 06/02/17 Unknown Rx Benzonatate [Tessalon Perle] 100 mg PO Q6HR PRN #14 capsule 06/02/17 Unknown Rx predniSONE [Deltasone] 60 mg PO QDAY #20 tab 06/02/17 Unknown Rx Allergies Allergy/AdvReac Type Severity Reaction Status Date / Time erythromycin base Allergy Vomiting Verified 06/02/17 10:13 Penicillins Allergy Vomiting Verified 06/02/17 10:13 ED Review of Systems ROS: Stated complaint: ASTHMA Other details as noted in HPI Constitutional: denies: chills, fever Eyes: denies: eye pain, eye discharge, vision change ENT: denies: ear pain, throat pain Respiratory: cough, wheezing Cardiovascular: denies: chest pain, palpitations Endocrine: no symptoms reported Gastrointestinal: denies: abdominal pain, nausea, diarrhea Genitourinary: denies: urgency, dysuria, discharge Musculoskeletal: denies: back pain, joint swelling, arthralgia Skin: denies: rash, lesions Neurological: denies: headache, weakness, paresthesias Psychiatric: denies: anxiety, depression Hematological/Lymphatic: denies: easy bleeding, easy bruising ED Past Medical Hx - Past Medical History Hx Asthma: Yes - Surgical History Additional Surgical History: tubal ligation - Social History Smoking Status: Never Smoker Substance Use Type: None - Medications Home Medications: Home Medications Medication Instructions Recorded Confirmed Last Taken Type Albuterol Sulfate [Ventolin HFA] 2 puff IH Q4H PRN #1 hfa.aer.ad 12/26/16 Unknown Rx Fluticasone [Flonase] 2 dispenser IH BID 12/26/16 02/24/17 Unknown History Ipratropium [Atrovent NEB] 0.5 mg IH Q6HRT #75 ml 12/26/16 02/24/17 Unknown Rx ALBUTEROL NEB's [Proventil 0.083% 2.5 mg IH QID PRN #90 dose 01/28/17 02/24/17 Unknown Rx NEBS] Fluticasone [Flonase] 1 spray NS QDAY #1 bottle 01/28/17 02/24/17 Unknown Rx Albuterol Sulfate [Ventolin HFA] 2 puff IH Q4H PRN #1 hfa.aer.ad 02/19/17 Unknown Rx Fluticasone/Salmeterol [Advair 1 puff IH BID #1 disk.w.dev 02/19/17 02/24/17 Unknown Rx Diskus 500-50 mcg] ALBUTEROL NEB's [Proventil 0.083% 2.5 mg IH Q4HRT PRN #30 nebu 02/27/17 Unknown Rx NEBS] Azithromycin [Zithromax Z-NICHOLAS] 250 mg PO DAILY #6 tab 02/27/17 Unknown Rx Benzonatate [Tessalon Perles] 100 mg PO Q8HR PRN #30 capsule 02/27/17 Unknown Rx Budesonide [Pulmicort Respules] 0.5 mg IH Q12HRT #60 nebu 02/27/17 Unknown Rx Fluticasone [Flonase] 100 mcg NS QDAY #30 bottle 02/27/17 Unknown Rx Ipratropium/Albuterol Sulfate 1 ampul IH Q4HRT #30 ampul.neb 02/27/17 Unknown Rx [DUONEB *Not for PRN Use*] Montelukast [Singulair] 10 mg PO QPM #30 tablet 02/27/17 Unknown Rx predniSONE [Deltasone] 10 mg PO QDAY #21 tab 02/27/17 Unknown Rx Albuterol Sulfate [Ventolin HFA] 2 puff IH Q4H PRN #1 hfa.aer.ad 06/02/17 Unknown Rx Benzonatate [Tessalon Perle] 100 mg PO Q6HR PRN #14 capsule 06/02/17 Unknown Rx predniSONE [Deltasone] 60 mg PO QDAY #20 tab 06/02/17 Unknown Rx ED Physical Exam - General Limitations: No Limitations General appearance: alert, in no apparent distress - Head Head exam: Present: atraumatic, normocephalic - Eye Eye exam: Present: normal appearance. Absent: scleral icterus - ENT ENT exam: Present: mucous membranes moist - Neck Neck exam: Present: normal inspection - Respiratory Respiratory exam: Present: wheezes. Absent: respiratory distress - Cardiovascular Cardiovascular Exam: Present: regular rate, normal rhythm. Absent: systolic murmur, diastolic murmur, rubs, gallop - GI/Abdominal GI/Abdominal exam: Present: soft, normal bowel sounds. Absent: distended, tenderness, guarding, rebound, rigid - Extremities Exam Extremities exam: Present: normal inspection - Back Exam Back exam: Present: normal inspection - Neurological Exam Neurological exam: Present: alert, oriented X3, CN II-XII intact. Absent: motor sensory deficit - Psychiatric Psychiatric exam: Present: normal affect, normal mood - Skin Skin exam: Present: warm, dry, intact, normal color. Absent: rash ED Course Vital Signs 06/02/17 06/02/17 06/02/17 10:13 10:28 10:51 Temperature 98.5 F Pulse Rate 111 H Pulse Rate [ 94 H 88 Bilateral] Respiratory 32 H Rate Respiratory 16 18 Rate [Bilateral ] Blood Pressure 102/71 O2 Sat by Pulse 95 Oximetry 06/02/17 06/02/17 06/02/17 11:03 11:34 12:57 Temperature Pulse Rate Pulse Rate [ 88 92 H Bilateral] Respiratory Rate Respiratory 16 16 Rate [Bilateral ] Blood Pressure O2 Sat by Pulse 97 Oximetry - Reevaluation(s) Reevaluation #1: Multiple rechecks. The patient has progressively improved. She does have mild residual end expiratory wheeze. However she feels confident that she could go home. Instructed her not to hesitate to come back should her situation be worsening. She will be placed on oral steroids and needs close follow-up with her primary care physician. 06/02/17 14:45 ED Medical Decision Making - Lab Data Result diagrams: 06/02/17 10:28 06/02/17 10:28 Laboratory Results - last 24 hr 06/02/17 06/02/17 10:28 10:28 WBC 4.5 RBC 4.32 Hgb 13.5 Hct 40.7 MCV 94 MCH 31 MCHC 33 RDW 15.3 H Plt Count 213 Eos % (Auto) Automation Application Engineer Add Manual Diff Complete Total Counted 100 Seg Neutrophils % Automation Application Engineer Seg Neuts % (Manual) 37.0 L Band Neutrophils % 0 Lymphocytes % (Manual) 33.0 Reactive Lymphs % (Man) 0 Monocytes % (Manual) 11.0 H Eosinophils % (Manual) 17.0 H Basophils % (Manual) 1.0 Metamyelocytes % 1.0 Myelocytes % 0 Promyelocytes % 0 Blast Cells % 0 Nucleated RBC % Not Reportable Seg Neutrophils # Man 1.7 L Band Neutrophils # 0.0 Lymphocytes # (Manual) 1.5 Abs React Lymphs (Man) 0.0 Monocytes # (Manual) 0.5 Eosinophils # (Manual) 0.8 H Basophils # (Manual) 0.0 Metamyelocytes # 0.0 Myelocytes # 0.0 Promyelocytes # 0.0 Blast Cells # 0.0 WBC Morphology Not Reportable Hypersegmented Neuts Not Reportable Hyposegmented Neuts Not Reportable Hypogranular Neuts Not Reportable Smudge Cells Not Reportable Toxic Granulation Not Reportable Toxic Vacuolation Not Reportable Dohle Bodies Not Reportable Pelger-Huet Anomaly Not Reportable Saul Rods Not Reportable Platelet Estimate Appears normal Clumped Platelets Not Reportable Plt Clumps, EDTA Not Reportable Large Platelets Not Reportable Giant Platelets Not Reportable Platelet Satelliting Not Reportable Plt Morphology Comment Not Reportable RBC Morphology Not Reportable Dimorphic RBCs Not Reportable Polychromasia Not Reportable Hypochromasia Not Reportable Poikilocytosis Not Reportable Anisocytosis 1+ Microcytosis Not Reportable Macrocytosis Not Reportable Spherocytes Not Reportable Pappenheimer Bodies Not Reportable Sickle Cells Not Reportable Target Cells Not Reportable Tear Drop Cells Not Reportable Ovalocytes 1+ Helmet Cells Not Reportable [place] Bodies Not Reportable [place] Rings Not Reportable [place] Cells Not Reportable Bite Cells Not Reportable Crenated Cell Not Reportable Elliptocytes Not Reportable Acanthocytes (Spur) Not Reportable Rouleaux Not Reportable Hemoglobin C Crystals Not Reportable Schistocytes Not Reportable Malaria parasites Not Reportable Jesús Bodies Not Reportable Hem Pathologist Commnt No Sodium 142 Potassium 3.7 Chloride 104.4 Carbon Dioxide 24 Anion Gap 17 BUN 14 Creatinine 0.6 L Estimated GFR > 60 BUN/Creatinine Ratio 23 Glucose 98 Calcium 8.5 Total Bilirubin 0.70 AST 20 ALT 16 Alkaline Phosphatase 53 Total Protein 6.5 Albumin 3.8 L Albumin/Globulin Ratio 1.4 - Radiology Data Radiology results: report reviewed interpreted by me: Chest x-ray was negative per radiologist Critical care attestation.: If time is entered above; I have spent that time in minutes in the direct care of this critically ill patient, excluding procedure time. ED Disposition Clinical Impression: Exacerbation of asthma Qualifiers: Asthma severity: moderate Asthma persistence: persistent Qualified Code(s): J45.41 - Moderate persistent asthma with (acute) exacerbation Disposition: TO HOME OR SELFCARE Is pt being admited?: No Does the pt Need Aspirin: No Condition: Stable Instructions: Asthma (ED) Additional Instructions: Do not hesitate to come back if asthma is worsening. Rx as directed. See your family physician as soon as possible. Prescriptions: Albuterol Sulfate [Ventolin HFA] 2 puff IH Q4H PRN #1 hfa.aer.ad PRN Reason: Shortness Of Breath Benzonatate [Tessalon Perle] 100 mg PO Q6HR PRN #14 capsule PRN Reason: Cough predniSONE [Deltasone] 60 mg PO QDAY #20 tab Referrals: PRIMARY CARE, [Primary Care Provider] - [facility] Time of Disposition: 14:48
[2017-06-02] MEDS ORDERED: DELTASONE PO ONE (15:10)
== END 2017-06-02 15:30 | disposition home or self-care (01) ==
LOC: ED 09:53
DX: J45.41 Moderate persistent asthma with (acute) exacerbation (principal); Z88.0 Allergy status to penicillin; Z88.8 Allergy status to other drugs, medicaments and biological substances
CPT/HCPCS: 36415; 71020; 80053; 85007; 85025; 94640; 96365; 96375; 99284; J2930; J3475; J7512

== ENCOUNTER 2017-08-25 03:15 | Emergency (ER) | payer OTHER ==
[2017-08-25] MEDS ORDERED: DUONEB *Not for PRN Use IH ONE ×2 (03:26→03:41)
[2017-08-25 03:40] VITALS: BP 128/85
--- NOTE | 2017-08-25 04:21 | XRay Report ---
FINAL REPORT PROCEDURE: XR CHEST ROUTINE 2V TECHNIQUE: PA and lateral chest radiographs were obtained. CPT 15509 HISTORY: cough and wheezing COMPARISON: 10/06/2016 FINDINGS: Heart: Normal. Mediastinum/Vessels: Normal. Lungs/Pleural space: Normal. Bony thorax: No acute osseous abnormality. Other: IMPRESSION: Normal examination.
[2017-08-25] MEDS ORDERED: PROVENTIL IH ONE (04:43)
--- NOTE | 2017-08-25 04:46 | Emergency Department Report ---
ED Asthma HPI - General Chief Complaint: Adult Asthma Stated Complaint: ASTHMA,TOOTHACHE HEADACHE Time Seen by Provider: 08/25/17 04:42 Source: patient Mode of arrival: Ambulatory Limitations: No Limitations - History of Present Illness Initial Comments: 52-year-old -[place] female in known past medical history of asthma comes in today for wheezing and coughing. Patient reports that she has run out of her albuterol inhaler but hasn't given her last nebulizer treatment about 1 AM. Patient denies any fever denies any chills she reports that she has a yellow sputum. She denies any nausea no vomiting. She reports that she had a cold about one and a half weeks ago. Patient has a past medical history of asthma and allergic to penicillin and erythromycin. She is on multiple asthmatic medications such as albuterol Singulair Advair and Zyrtec. Complaint: wheezing -: days(s) (2) Severity: moderate Context: recent URI Associated Symptoms: productive cough Treatments Prior to Arrival: inhaled bronchodilator - Related Data Current Asthma Therapy: inhaled bronchodilator, inhaled steroid Home Medications Medication Instructions Recorded Confirmed Last Taken Fluticasone [Flonase] 2 dispenser IH BID 12/26/16 02/24/17 Unknown Previous Rx's Medication Instructions Recorded Last Taken Type Albuterol Sulfate [Ventolin HFA] 2 puff IH Q4H PRN #1 hfa.aer.ad 12/26/16 Unknown Rx Ipratropium [Atrovent NEB] 0.5 mg IH Q6HRT #75 ml 12/26/16 Unknown Rx ALBUTEROL NEB's [Proventil 0.083% 2.5 mg IH QID PRN #90 dose 01/28/17 Unknown Rx NEBS] Fluticasone [Flonase] 1 spray NS QDAY #1 bottle 01/28/17 Unknown Rx Albuterol Sulfate [Ventolin HFA] 2 puff IH Q4H PRN #1 hfa.aer.ad 02/19/17 Unknown Rx Fluticasone/Salmeterol [Advair 1 puff IH BID #1 disk.w.dev 02/19/17 Unknown Rx Diskus 500-50 mcg] Azithromycin [Zithromax Z-NICHOLAS] 250 mg PO DAILY #6 tab 02/27/17 Unknown Rx Benzonatate [Tessalon Perles] 100 mg PO Q8HR PRN #30 capsule 02/27/17 Unknown Rx Budesonide [Pulmicort Respules] 0.5 mg IH Q12HRT #60 nebu 02/27/17 Unknown Rx Fluticasone [Flonase] 100 mcg NS QDAY #30 bottle 02/27/17 Unknown Rx Ipratropium/Albuterol Sulfate 1 ampul IH Q4HRT #30 ampul.neb 02/27/17 Unknown Rx [DUONEB *Not for PRN Use*] Montelukast [Singulair] 10 mg PO QPM #30 tablet 02/27/17 Unknown Rx predniSONE [Deltasone] 10 mg PO QDAY #21 tab 02/27/17 Unknown Rx Benzonatate [Tessalon Perle] 100 mg PO Q6HR PRN #14 capsule 06/02/17 Unknown Rx ALBUTEROL NEB's [Proventil 0.083% 2.5 mg IH Q4HRT PRN #30 nebu 08/25/17 Unknown Rx NEBS] Albuterol Sulfate [Ventolin HFA] 2 puff IH Q4H PRN #1 hfa.aer.ad 08/25/17 Unknown Rx predniSONE [Deltasone] 40 mg PO QDAY #5 tab 08/25/17 Unknown Rx Allergies Allergy/AdvReac Type Severity Reaction Status Date / Time erythromycin base Allergy Vomiting Verified 06/02/17 10:13 Penicillins Allergy Vomiting Verified 06/02/17 10:13 ED Review of Systems ROS: Stated complaint: ASTHMA,TOOTHACHE HEADACHE Other details as noted in HPI Constitutional: denies: chills, fever Eyes: denies: eye pain, eye discharge, vision change ENT: denies: ear pain, throat pain Respiratory: cough, wheezing Cardiovascular: denies: chest pain, palpitations Endocrine: no symptoms reported Gastrointestinal: denies: abdominal pain, nausea, diarrhea Genitourinary: denies: urgency, dysuria, discharge Musculoskeletal: denies: back pain, joint swelling, arthralgia Skin: denies: rash, lesions Neurological: denies: headache, weakness, paresthesias Psychiatric: denies: anxiety, depression Hematological/Lymphatic: denies: easy bleeding, easy bruising ED Past Medical Hx - Past Medical History Hx Asthma: Yes - Surgical History Additional Surgical History: tubal ligation - Social History Smoking Status: Never Smoker Substance Use Type: None - Medications Home Medications: Home Medications Medication Instructions Recorded Confirmed Last Taken Type Albuterol Sulfate [Ventolin HFA] 2 puff IH Q4H PRN #1 hfa.aer.ad 12/26/16 Unknown Rx Fluticasone [Flonase] 2 dispenser IH BID 12/26/16 02/24/17 Unknown History Ipratropium [Atrovent NEB] 0.5 mg IH Q6HRT #75 ml 12/26/16 02/24/17 Unknown Rx ALBUTEROL NEB's [Proventil 0.083% 2.5 mg IH QID PRN #90 dose 01/28/17 02/24/17 Unknown Rx NEBS] Fluticasone [Flonase] 1 spray NS QDAY #1 bottle 01/28/17 02/24/17 Unknown Rx Albuterol Sulfate [Ventolin HFA] 2 puff IH Q4H PRN #1 hfa.aer.ad 02/19/17 Unknown Rx Fluticasone/Salmeterol [Advair 1 puff IH BID #1 disk.w.dev 02/19/17 02/24/17 Unknown Rx Diskus 500-50 mcg] Azithromycin [Zithromax Z-NICHOLAS] 250 mg PO DAILY #6 tab 02/27/17 Unknown Rx Benzonatate [Tessalon Perles] 100 mg PO Q8HR PRN #30 capsule 02/27/17 Unknown Rx Budesonide [Pulmicort Respules] 0.5 mg IH Q12HRT #60 nebu 02/27/17 Unknown Rx Fluticasone [Flonase] 100 mcg NS QDAY #30 bottle 02/27/17 Unknown Rx Ipratropium/Albuterol Sulfate 1 ampul IH Q4HRT #30 ampul.neb 02/27/17 Unknown Rx [DUONEB *Not for PRN Use*] Montelukast [Singulair] 10 mg PO QPM #30 tablet 02/27/17 Unknown Rx predniSONE [Deltasone] 10 mg PO QDAY #21 tab 02/27/17 Unknown Rx Benzonatate [Tessalon Perle] 100 mg PO Q6HR PRN #14 capsule 06/02/17 Unknown Rx ALBUTEROL NEB's [Proventil 0.083% 2.5 mg IH Q4HRT PRN #30 nebu 08/25/17 Unknown Rx NEBS] Albuterol Sulfate [Ventolin HFA] 2 puff IH Q4H PRN #1 hfa.aer.ad 08/25/17 Unknown Rx predniSONE [Deltasone] 40 mg PO QDAY #5 tab 08/25/17 Unknown Rx ED Physical Exam - General Limitations: No Limitations General appearance: alert, in no apparent distress - Head Head exam: Present: atraumatic, normocephalic - Eye Eye exam: Present: other (periorbital hyper pigmented skin) - ENT ENT exam: Present: mucous membranes moist - Neck Neck exam: Present: normal inspection - Respiratory Respiratory exam: Present: wheezes, rhonchi, prolonged expiratory (wheezing), other (inspiratory wheezing) - Cardiovascular Cardiovascular Exam: Present: regular rate, normal rhythm. Absent: systolic murmur, diastolic murmur, rubs, gallop - GI/Abdominal GI/Abdominal exam: Present: soft, normal bowel sounds - Neurological Exam Neurological exam: Present: alert, oriented X3 - Psychiatric Psychiatric exam: Present: normal affect, normal mood - Skin Skin exam: Present: warm, dry, intact, normal color. Absent: rash ED Course Vital Signs 08/25/17 08/25/17 03:17 03:33 Temperature 98.2 F 98.2 F Pulse Rate 105 H 66 Respiratory 18 16 Rate Blood Pressure 128/85 128/85 O2 Sat by Pulse 94 100 Oximetry - Reevaluation(s) Reevaluation #1: 08/25/17 05:51 Patient reports she feels much better able to speak in complete sentences. ED Medical Decision Making - Radiology Data Radiology results: report reviewed Chest x-ray: Normal examination - Medical Decision Making Patient has been evaluated by this provider fast track. Patient was given Solu- Medrol 125 mg. As well as a DuoNeb. This was given in triage. This provider has ordered another 5 mg of albuterol. It would discharged patient on albuterol inhaler as well as a prednisone 20 mg by mouth daily for 5 days. To start tomorrow. Discussed the patient she needs to follow-up with her primary care provider. Patient verbalized understanding Critical care attestation.: If time is entered above; I have spent that time in minutes in the direct care of this critically ill patient, excluding procedure time. ED Disposition Clinical Impression: Asthma attack Qualifiers: Asthma severity: severe Asthma persistence: unspecified Qualified Code(s): J45.901 - Unspecified asthma with (acute) exacerbation Disposition: DC- TO HOME OR SELFCARE Is pt being admited?: No Does the pt Need Aspirin: No Condition: Stable Additional Instructions: Take prednisone starting tomorrow as prescribed. Continue with the albuterol inhalers as well as albuterol nebs. Please follow-up with her primary care provider in the next 2-3 days. Prescriptions: ALBUTEROL NEB's [Proventil 0.083% NEBS] 2.5 mg IH Q4HRT PRN #30 nebu PRN Reason: Shortness Of Breath Albuterol Sulfate [Ventolin HFA] 2 puff IH Q4H PRN #1 hfa.aer.ad PRN Reason: Shortness Of Breath predniSONE [Deltasone] 40 mg PO QDAY #5 tab Referrals: PRIMARY CARE, [Primary Care Provider] - 3-5 Days Forms: Work/School Release Form(ED)
== END 2017-08-25 06:02 | disposition home or self-care (01) ==
LOC: ED 03:15
DX: J45.901 Unspecified asthma with (acute) exacerbation (principal); Z98.51 Tubal ligation status; Z88.0 Allergy status to penicillin; Z88.1 Allergy status to other antibiotic agents
CPT/HCPCS: 71046; 94640; 96372; 99283; J2930